=== PATIENT | female | born 1970 | race Caucasian/White ===

== ENCOUNTER 2025-04-09 12:11 | Emergency (ER) | payer OTHER, SELFPAY ==
[2025-04-09 12:17] VITALS: BP 133/62; PULSE 75; RESP 18; TEMP 36.6; O2SAT 100
[2025-04-09 13:12] LABS: EDSTREPNEGPOS1 Negative (Negative)
--- OUTSIDE RECORDS SUMMARY | 2025-04-09 13:35 | XMS_ITS | Encounter Summary ---
Author Organization [facility] Facility Care Team Providers Care Relations Director Name Role Phone Soren Small MD Primary Care Provider [phone] Encounter Details Date Type Department Care Team (Latest Contact Info) Description 08/20/2016 Orders Only [facility] CLINCONV ProviderBilly MD [address] [place] [place] [id number] Social History Tobacco Use Types Packs/Day Years Used Date Smoking Tobacco: Never Assessed Comments Unknown Sex and Gender Information Value Date Recorded Sex Assigned at Not on file Legal Sex Female 6:58 AM DOCKET CLERK Gender Identity Not on file Sexual Orientation Straight 08/09/2022 10 :34 AM DOCKET CLERK documented as of this encounter Plan of Treatment Not on file documented as of this encounter Procedures Procedure Name Priority Date/Time Associated Diagnosis Comments PROCEDURE - RESULT 08/14/2016 12 :00 AM DOCKET CLERK PROCEDURE - RESULT 07/21/2016 12 :00 AM DOCKET CLERK documented in this encounter Results * PROCEDURE - RESULT (08/14/2016 12:00 AM DOCKET CLERK) Narrative 08/14/2016 12:00 AM DOCKET CLERK Ordered by an unspecified provider. Historical Provider Final Res ult * PROCEDURE - RESULT (07/21/2016 12:00 AM DOCKET CLERK) Narrative 07/21/2016 12:00 AM DOCKET CLERK Ordered by an unspecified provider. us Historical Provider Final Res ult documented in this encounter Visit Diagnoses Not on filedocumented in this encounter Additional Health Concerns Infection Onset Date Last Indicated Resolved Time COVID: Suspected 05/22/2021 05/22/2021 05/23/2021 2:41 AM DOCKET CLERK documented as of this encounter Care Teams Relations Director Relationship Specialty Start Date End Date Soren Small MD PCP - General Family Medicine 12/05/18 documented as of this encounter
--- OUTSIDE RECORDS SUMMARY | 2025-04-09 13:35 | XMS_ITS | Clinical Summary ---
Author Organization [facility] Office Center Address [address] [place] [address] Care Team Providers Care Cutch Cleaner Name Role Phone Soren Small MD Primary Care Provider [phone] Allergies Active Allergy Reactions Criticality Noted Date Comments Codeine Sulfate Vomiting Low 10/11/2018 Penicillin G Sodium Rash Medium 10/11/2018 Sulfa (Sulfonamide Antibiotics) Rash Medium 09/14 Medications metroNIDAZOLE (METROGEL) 1 % gel Apply 1 Application topically daily as needed (rosacea) 2 Active pimecrolimus (ELIDEL) 1 % cream Apply 1 Application topically 2 (two) times a day as needed (skin irritation) 2 Active ibuprofen (ADVIL,MOTRIN) 800 mg tabletIndication s:Myalgia Take 1 tablet (800 mg total) by mouth 3 (three) times a day 30 tablet 4 Active methocarbamoL (ROBAXIN) 500 mg tablet Take 1 tablet (500 mg total) by mouth every 12 (twelve) hours as needed for muscle spasms 20 tablet 4 Active mupirocin (BACTROBAN) 2 % ointment Apply to each nostril 2 (two) times a day Apply pea size amount into each nostril twice a day for 5 days prior to surgery. 22 g 4 Active terbinafine (LamiSIL) 250 mg tablet Take 1 tablet (250 mg total) by mouth nightly 4 Active multivitamin tablet Take 1 tablet by mouth nightly Active cholecalciferol (Vitamin D3) 1,000 unit capsule Take 1 capsule (1,000 Units total) by mouth nightly Active citalopram (CeleXA) 10 mg tabletIndication s:Generalized anxiety disorder Take 1 tablet (10 mg total) by mouth daily 90 tablet 5 Active losartan (COZAAR) 50 mg tabletIndication s:Primary hypertension Take 1 tablet (50 mg total) by mouth daily 90 tablet 5 Active Active Problems Problem Noted Date Diagnosed Date Cervical disc disorder with myelopathy of mid-cervical region 05/18/2024 Generalized anxiety disorder 09/09/2021 JESSICA (obstructive sleep apnea) 08/13/2020 Assessment & Plan (02/09/2024 3:27 PM CDT): Due to continued symptoms, the patient will continue with auto titrating CPAP set at 5-15 cm water pressure. Denied need for supplies. DME a [facility] Assessment & Plan (12/14/2022 2:09 PM CDT): Patient continue to wear her CPAP at an auto titrating range of 5-15 cm water pressure while sleeping. Her DME is [facility]. I have sent an order over for new supplies. Assessment & Plan (09/23/2021 11:11 AM CDT): Patient continue to wear her CPAP in auto titrating range of 5-15 cm water pressure while sleeping. Her DME is [facility]. The patient has received her replacement unit from [employer]. Assessment & Plan (08/13/2020 2:01 PM TRACER CLERK): The patient will continue with CPAP therapy at 5 cm water pressure to treat obstructive sleep apnea. The patient did receive an order for new supplies. The DME company is [facility]. The patient is benefitting from CPAP therapy. Vitamin D deficiency 12/05/2018 Overview (12/05/2018): reviewed last labs and asked pt to go up to 2000 units/day Hypertension 02/13/2016 Resolved Problems Problem Noted Date Diagnosed Date Resolved Date Screening for colon cancer 01/12/2023 1 07/31/2023 Morbid obesity with BMI of 45.0-49.9, adult 12/05/2018 05/10/2023 Anxiety 02/13/2016 09/09/2021 Immunizations Immunization Administration Dates Next Due Influenza, Quadrivalent, Spl it, Preservative Free, Intramuscular 04/05/2023,04/22/2022 Influenza, Trivalent, Preser vative Free, Intramuscular 04/11/2024 Influenza, Unspecified 03/14/2024,03/16/2022, Pfizer SARS-CoV-2 Monovalent Vaccination (12+ Yrs) PURPLE 06/24/2020,06/04/2020 Tdap 09/06/2024 ZOSTER Recombinant 05/16/2024,03/01/2024 Surgical History Surgery Date Site/Laterality Comments SECTION FOOT SURGERY Left ENDOMETRIAL ABLATION BREAST BIOPSY Left CARPAL TUNNEL RELEASE Right COLONOSCOPY in her 20's UPPER GASTROINTESTINAL ENDOSCOPY in her 's severe gastritis Medical History Medical History Date Comments Anxiety Hypertension Sleep apnea, obstructive PONV (postoperative nausea and vomiting) Family History Medical History Relation Name Comments Diabetes Father Heart disease Father Breast cancer Mother Delayed emergence from anesthesia Mother Hypertension Mother Ovarian cancer Mother Anesthesia problems Neg Hx Relation Name Status Comments Father Mother Alive Social History Tobacco Use Types Packs/Day Years Used Date Smoking Tobacco: Never Smokeless Tobacco: Never Alcohol Use Standard Drinks/Week Comments Yes 0 (1 standard drink = 0.6 oz pur e alcohol) AUDIT-C Answer Date Recorded Q1: How often do you have a drink containing alc ohol? 2-4 times a month 05/30/2024 Q2: How many drinks containi ng alcohol do you have on a typical day when you are drinking? 1 or 2 05/30/2024 Q3: How often do you have si x or more drinks on one occasion? Never 05/30/2024 PHQ-2 Answer Date Recorded PHQ-2 Total Score (If total score is 3 or more points, staff should administer the PHQ-9) 0 05/30/2024 Personal Safety Answer Date Recorded Have you ever been in or are you currently in a harmful physical or emotional relationship or is someone making you feel afraid or unsafe? Denies 06/23/2024 Comments No Sex and Gender Information Value Date Recorded Sex Assigned at Not on file Legal Sex Female 6:58 AM TRACER CLERK Gender Identity Not on file Sexual Orientation Straight 08/09/2022 10 :34 AM TRACER CLERK Obstetrics History Para Term AB IAB SAB Ectopic Multiple Livin g Live Births 3 3 3 Date Outcome GA Total Labor Labor/2nd/3rd Weight Sex Type Anes PTL Vivienne A1 A5 Name Clin Term Term Term Last Filed Vital Signs Vital Sign Reading Time Taken Comments Blood Pressure 143/89 06/23/2024 12:30 PM TRACER CLERK Pulse 89 06/23/2024 12:30 PM TRACER CLERK Temperature 36 C (96.8 F) 06/23/2024 10:30 AM TRACER CLERK Respiratory Rate 17 06/23/2024 12:30 PM TRACER CLERK Oxygen Saturation 96% 06/23/2024 12:30 PM TRACER CLERK Inhaled Oxygen Concentration - - Weight 116.1 kg (256 lb) 01/05/2025 3:28 PM CDT Height 154.9 cm (5' 1) 05/30/2024 2:58 PM TRACER CLERK Body Mass Index 48.37 05/30/2024 2:58 PM TRACER CLERK Plan of Treatment Health Maintenance Due Date Last Done Comments Cervical Cancer Screening 1970 Regular Well Visit/Exam 18-64 1990 Covid-19 Vaccine ( - season) 2025 06/24/2020, 06/04/2020 Influenza Vaccine (#1) 2025 , 03/14/2024, 04/05/2023, Additional history exists Breast Cancer Screening-Mammogram 05/23/2025 05/23/2024, 05/15/2023, 12/30/2021, Additional history exists Depression Screening 05/30/2025 05/30/2024, 05/10/2023, 05/10/2023, Additional history exists Colon Cancer Screening-Colonoscopy 07/27/2026 07/27/2023 DTaP/Tdap/Td Vaccine (2 - Td or Tdap) 09/06/2034 09/06/2024 Hepatitis B Screening Completed 01/01/2015 Hepatitis C Screening Completed 01/01/2015 Zoster Vaccine Completed 05/16/2024, 03/01/2024 Pneumococcal vaccine <65 Aged Out No longer eligible based on patient's age to complete this topic Medical Devices Implanted Type Area Health Information Clerk Device Identifier Shelf Expiration Date Model / Serial / Lot [employer] Disc Intervertebral Cervical Superior Simplify Size 2 [id number] - [id number] Implanted:Qty: 1 on 06/23/2024 by Henrry Correa MD PhD at [facility] N/A: Spine Cervical [employer] [id number] 09/29/2026 [id number] / / [id number] [employer] Disc Intervertebral Cervical Superior Simplify Size 2 [id number] - [id number] Implanted:Qty: 1 on 06/23/2024 by Henrry Crorea MD PhD at [facility] N/A: Spine Cervical [employer] [id number] 03/01/2028 [id number] / / [id number] Procedures Procedure Name Priority Date/Time Associated Diagnosis Comments SCREENING MAMMOGRAM BILATERAL W DARCIE Schedule Routine, Read Routine (OP Routine) 05/23/2024 8:26 AM TRACER CLERK Encounter for screening mammogram for malignant neoplasm of breast COLONOSCOPY 07/27/2023 11:42 AM TRACER CLERK HEPATITIS PANEL, ACUTE Routine 01/01/2015 10:50 AM CDT from Last 3 Months or Most Recently Relevant to Health Maintenance Results * Screening Mammogram Bilateral W Darcie (05/23/2024 8:26 AM TRACER CLERK) Anatomical Region Laterality Modality Breast Bilateral Mammography Impressions 05/23/2024 10:59 AM TRACER CLERK BI-RADS ATLAS category (overall): 1 - Negative There is no mammographic evidence of malignancy. A 1 year screening mammogram is recommended. The patient has been or will be contacted. We recommend annual screening mammography for women at average risk of breast cancer beginning at age 40, based on guidelines of the [employer] (ACR Practice Parameter for the Performance of Screening and Diagnostic Mammography) and [employer]. For women with and elevated risk of breast cancer, please refer to the ACR Practice Parameter for specific screening recommendations. The patient will be entered into a reminder system with a target due date of 1 year for her next screening exam. Narrative 05/23/2024 10:59 AM TRACER CLERK Screening Mammogram Bilateral W Darcie: 05/23/24 The study was acquired using full field digital technology and interpreted from soft copy. 2D digital mammographic views, as well as 3D digital tomosynthesis were performed in the CC and MLO projections. CLINICAL: Encounter for screening mammogram for malignant neoplasm of breast. No relevant medical history has been documented for this patient. History of breast cancer in Mother. COMPARISONS: 05/15/2023 Screening Mammogram Bilateral W Darcie 12/30/2021 SCREENING MAMMOGRAM BILATERAL W DARCIE 06/15/2019 Screening Mammogram Bilateral W Darcie 05/09/2018 Screening Mammogram Bilateral W Darcie 04/14/2017 Screening Mammogram Bilateral W Darcie BREAST TISSUE: The breasts are heterogeneously dense, which may obscure small masses. FINDINGS: There is no new suspicious finding in either breast on mammogram. us Jennifer Reese MD IMG MAMMO PROCEDURES Final Result * COLONOSCOPY (07/27/2023 11:42 AM TRACER CLERK) Anatomical Region Laterality Modality Other Narrative Procedure Note Marciano Head MD - 07/27/2023 11:42 AM CST [facility] END[facility] Patient Name: Kiki Lawson Procedure Date: 07/27/2023 11:42 AM Date of : 1970 Admit Type: Outpatient Age: 53 Gender: Female Attending MD: Marciano Head M.D. Room: [facility] ROOM 06 Note Status: Finalized Procedure: Colonoscopy Indications: Screening for colorectal malignant neoplasm Referring MD: Sage Dimas M.D. Providers: Marciano Head M.D. Medicines: Monitored Anesthesia Care Complications: No immediate complications. Estimated Blood Loss: Estimated blood loss: none. Procedure: Pre-Anesthesia Assessment: - Prior to the procedure, a History and Physicalwas performed, and patient medications and allergieswere reviewed. The risks and benefits of the procedureand the sedation options and risks were discussed withthe patient. All questions were answered and informed consent was obtained. Patient identification and proposed procedure were verified. After reviewingthe risks and benefits, the patient was deemed in satisfactory condition to undergo the procedure.The anesthesia plan was to use monitored anesthesiacare (MAC). Immediately prior to administration of medications, the patient was re-assessed foradequacy to receive sedatives. The heart rate, respiratory rate, oxygen saturations, blood pressure, adequacyof pulmonary ventilation, and response to care were monitored throughout the procedure. The physical status of the patient was re-assessed after the procedure. The benefits, risks and alternatives of theprocedure and sedation were discussed and informed consentwas obtained. All questions were answered. Please referto the signed informed consent document in the medical record. The scope was passed under direct vision.The [id number]-[id number] colonoscope was introduced through theanus and advanced to the cecum, identified byappendiceal orifice and ileocecal valve. The colonoscopy was performed without difficulty. The patient tolerated the procedure well. The quality of the bowel preparation was adequate. Scope withdrawal time was15 minutes. Prep was administered in a split dose. Findings: The perianal and digital rectal examinations were normal. A 10 mm polyp was found in the ascending colon. The polyp wassessile. The polyp was removed with a hot snare. Resection and retrieval were complete. A diminutive polyp was found in the transverse colon. The polyp was removed with a cold biopsy forceps. Resection and retrieval were complete. A diminutive polyp was found in the splenic flexure. The polyp was removed with a cold biopsy forceps. Resection and retrieval were complete. Non-bleeding internal hemorrhoids were found during retroflexion. The hemorrhoids were small. The exam was otherwise without abnormality. Impression: - One 10 mm polyp in the ascending colon, removedwith a hot snare. Resected and retrieved. - One diminutive polyp in the transverse colon, removed with a cold biopsy forceps. Resected and retrieved. - One diminutive polyp at the splenic flexure,removed with a cold biopsy forceps. Resected andretrieved. - Non-bleeding internal hemorrhoids. - The examination was otherwise normal. Recommendation: - Patient has a contact number available for emergencies. The signs and symptoms of potential delayed complications were discussed with thepatient. Return to normal activities tomorrow. Written discharge instructions were provided to thepatient. - High fiber diet. - Continue present medications. - Await pathology results. - Repeat colonoscopy in 3 years for surveillance. Marciano Head M.D. Marciano Head M.D. 07/27/2023 12:28:32 PM . Number of Addenda: 0 Note Initiated On: 07/27/2023 11:42 AM Recognized by the [place] [employer] for promoting quality in endoscopy Marciano Head MD ENDOSCOPY PROCEDURES Final Resul t * (ABNORMAL) Hepatitis panel, acute (01/01/2015 10:50 AM CDT) HepBsAg NONREACT NONREACTIVE Comment: Siemens CentaurXP using FAREED (chemiluminescent immunoassay) technology. NONREACTIVE: IgM antibodies to Hepatitis B Surface antigen not detected. REACTIVE: IgM antibodies to Hepatitis B Surface antigen detected. Reactive results will be confirmed by neutralization testing. HBsAb (immune status) REACTIVE(H) NONREACTIVE Comment: Siemens CentaurXP using FAREED (chemiluminescent immunoassay) technology. NONREACTIVE: IgM antibodies to Hepatitis B Surface antibody not detected. REACTIVE: IgM antibodies to Hepatitis B Surface antibody detected. Hep B core IgM NONREACT NONREACTIVE 5 12:22 PM [facility] HISTORICAL RESULTS Comment: Siemens CentaurXP using FAREED (chemiluminescent immunoassay) technology. NONREACTIVE: IgM antibodies to Hepatitis B Core antigen not detected. EQUIVOCAL: IgM antibodies to Hepatitis B Core antigen may or may not be present. Obtain a new specimen and retest. REACTIVE: IgM antibodies to Hepatitis B Core antigen detected. Hep A IgM NONREACT NONREACTIVE Comment: Siemens CentaurXP using FAREED (chemiluminescent immunoassay) technology. NONREACTIVE: IgM antibodies to Hepatitis A not detected. This does not exclude possibility of exposure to Hepatitis A or early acute infection. EQUIVOCAL:IgM antibodies to Hepatitis A may or may not be present. Suggest recollection and retest. REACTIVE: Antibodies to Hepatitis A detected. Hep C Ab NONREACT NONREACTIVE Comment: Siemens CentaurXP using FAREED (chemiluminescent immunoassay) technology. NONREACTIVE: Antibodies to Hepatitis C not detected. This does not exclude early acute Hepatitis C infection, possibility of exposure to Hepatitis C, antibodies below detection limit, or to lack of antibody reactivity to the antigen used in this assay. EQUIVOCAL: Antibodies to Hepatitis C may or may not be present. Sample to be confirmed by real-time PCR method. REACTIVE: Antibodies to Hepatitis C detected. 01/01/2015 10:5 0 AM CDT 01/01/2015 11:01 AM CDT X[facility] Chairez LAB MICROBIOLOGY - GENER AL ORDERABLES Final Result Performing Organization Address City/State/[facility] Co de Phone Number [facility] HISTORICAL RESULTS from Last 3 Months or Most Recently Relevant to Health Maintenance Insurance [facility] [employer] Address: [address] [place] [address] [employer] [facility] [employer] Address[address] [place] [address] [employer] [facility] [employer] Address: [address] [place] [address] Care Teams Cutch Cleaner Relationship Specialty Start Date End Date Soren Small MD PCP - General Family Medicine 12/05/18
--- OUTSIDE RECORDS SUMMARY | 2025-04-09 13:35 | XMS_ITS | Encounter Summary ---
Author Organization [facility] Facility Care Team Providers Care Oyster Sorter Name Role Phone Soren Small MD Primary Care Provider [phone] Encounter Details Date Type Department Care Team (Latest Contact Info) Description 10/22/2016 Orders Only [facility]G CLINCONV ProviderBilly MD [address] [place] [address] Social History Tobacco Use Types Packs/Day Years Used Date Smoking Tobacco: Never Assessed Comments Unknown Sex and Gender Information Value Date Recorded Sex Assigned at Not on file Legal Sex Female 6:58 AM PIT AND AUXILIARIES SUPERVISOR Gender Identity Not on file Sexual Orientation Straight 08/09/2022 10 :34 AM PIT AND AUXILIARIES SUPERVISOR documented as of this encounter Plan of Treatment Not on file documented as of this encounter Procedures Procedure Name Priority Date/Time Associated Diagnosis Comments PROCEDURE - RESULT 08/14/2016 12 :00 AM PIT AND AUXILIARIES SUPERVISOR documented in this encounter Results * PROCEDURE - RESULT (08/14/2016 12:00 AM PIT AND AUXILIARIES SUPERVISOR) Narrative 08/14/2016 12:00 AM PIT AND AUXILIARIES SUPERVISOR Ordered by an unspecified provider. Historical Provider Final Res ult documented in this encounter Visit Diagnoses Not on filedocumented in this encounter Additional Health Concerns Infection Onset Date Last Indicated Resolved Time COVID: Suspected 05/22/2021 05/22/2021 05/23/2021 2:41 AM PIT AND AUXILIARIES SUPERVISOR documented as of this encounter Care Teams Oyster Sorter Relationship Specialty Start Date End Date Soren Small MD PCP - General Family Medicine 12/05/18 documented as of this encounter
--- NOTE | 2025-04-09 13:55 | ED_ITS ---
HPI - General Adult General Chief complaint: Upper Respiratory Infection Stated complaint: Cough / Congestion Source: patient Mode of arrival: ambulatory Limitations: no limitations History of Present Illness HPI narrative: Patient presents for evaluation of sick symptoms since 03/31/2025. She reports headache, sinus congestion, thick yellow/green drainage from the nares, sore throat and occasional cough. No nausea, vomiting, diarrhea or SOB. No recent sick contacts to her knowledge. She has tried several over the counter medications without much improvement. Related Data Home Medications ?Medication ?Instructions ?Recorded ?Confirmed ?Last Taken ?Type citalopram 10 mg tablet mg 04/09/25 Unknown History losartan 50 mg tablet mg 04/09/25 Unknown History Allergies Allergy/AdvReac Type Severity Reaction Status Date / Time codeine Allergy Mild Rash Verified 04/09/25 12:49 Penicillins Allergy Mild Rash Verified 04/09/25 12:49 Review of Systems Review of Systems: CONSTITUTIONAL: Denies fever, chills, or sweats. EYES: Denies visual changes, redness, or discharge. ENT: Reports sinus congestion, thick yellow/green drainage from the nares and sore throat CARDIOVASCULAR: Denies chest pain, palpitations, or edema. RESPIRATORY: Denies cough or dyspnea. GASTROINTESTINAL: Denies abdominal pain, nausea, vomiting, or diarrhea. GENITOURINARY: Denies dysuria or hematuria. SKIN: Denies rash or itching. MUSCULOSKELETAL: Denies back pain, joint pain, or myalgia. NEUROLOGIC: Reports headache. Denies numbness, dizziness, or weakness. PSYCHIATRIC: Denies anxiety or depression. [facility] Past Medical History Medical History Hypertension Surgical History Surgical History No pertinent past surgical history Family History Family History Mother Family history non-contributory Social History Social History Living arrangements: with family Additional occupation/education comments: RN director Gender identity (if verbalized by the patient): Female Spiritual care concerns: No Exam Narrative: GENERAL: Well-appearing, well-nourished, and in no acute distress. HEAD: Normocephalic, atraumatic. EYES: PERRLA and EOMI. ENT: Nares clear, no rhinorrhea or epistaxis. Mucous membranes moist. Oropharynx without tonsillar hypertrophy exudate or other lesions. Bilateral TMs pearly rivero nonbulging NECK: Supple. No adenopathy or masses. No carotid bruits or JVD CHEST: Clear to auscultation. No respiratory distress. No wheezes rales or rhonchi HEART: Regular rate and rhythm. No murmur heard. Normal peripheral pulses. ABDOMEN: Soft, nontender, nondistended, normal active bowel sounds. EXTREMITIES: Normal range of motion. No edema. SKIN: Warm, dry, no rash. NEURO: No focal deficits. Alert and oriented x3. PSYCH: Normal mood and affect. Course Course Emergency Course: this is a 54-year-old female who presented for evaluation of sick symptoms. She meets criteria for bacterial sinusitis based upon duration of time in which she has been symptomatic and mucopurulent nature for discharge. She has an allergy to penicillins will discharge with doxycycline. Increase hydration. [id number] agents for symptom management. Follow up with primary provider. Go to the ER for worsening symptoms. Patient in agreement with plan of care. Level of Care: Express Care Visit Vital Signs Vital signs: Vital Signs Temperature 36.6 C 04/09/25 12:17 Pulse Rate 75 04/09/25 12:17 Respiratory Rate 18 04/09/25 12:17 Blood Pressure 133/62 04/09/25 12:17 Pulse Oximetry 100 04/09/25 12:17 Oxygen Delivery Room Air 04/09/25 12:17 Temperature 36.6 C 04/09/25 12:17 Pulse Rate 75 04/09/25 12:17 Respiratory Rate 18 04/09/25 12:17 Blood Pressure 133/62 04/09/25 12:17 Pulse Oximetry 100 04/09/25 12:17 Oxygen Delivery Room Air 04/09/25 12:17 Medical Decision Making Vital Signs Vital Signs: Vital Signs Temperature 36.6 C 04/09/25 12:17 Pulse Rate 75 04/09/25 12:17 Respiratory Rate 18 04/09/25 12:17 Blood Pressure 133/62 04/09/25 12:17 Pulse Oximetry 100 04/09/25 12:17 Oxygen Delivery Room Air 04/09/25 12:17 Temperature 36.6 C 04/09/25 12:17 Pulse Rate 75 04/09/25 12:17 Respiratory Rate 18 04/09/25 12:17 Blood Pressure 133/62 04/09/25 12:17 Pulse Oximetry 100 04/09/25 12:17 Oxygen Delivery Room Air 04/09/25 12:17 Lab Data Labs: Lab Results 04/09/25 Range/Units 12:48 POC Grp A Strep Screen Negative (Negative) Discharge Plan Discharge Clinical Impression: Sinusitis Patient Disposition: Home Condition: Stable Instructions: Antibiotic Form, Sinusitis (ED) Patient Language: Serbian Prescriptions: New doxycycline hyclate 100 mg capsule 100 mg PO BID Qty: 20 0RF No Action losartan 50 mg tablet citalopram 10 mg tablet Follow-up/Referrals: Staci,Soren Mcclendon MD [Primary Care Provider, Unknown] Time of Disposition: 13:19
== END 2025-04-09 13:20 | disposition home or self-care (01) ==
PROVIDERS: Emergency Provider Nurse Practitioner; PCP Family Medicine
DX: J32.9 Chronic sinusitis, unspecified (principal); I10 Essential (primary) hypertension
CPT/HCPCS: 87081; 87880; 99213; G0463

== ENCOUNTER 2025-04-10 08:02 | Emergency (ER) | payer OTHER, SELFPAY ==
--- NOTE | 2025-04-10 08:04 | ED.EYEPROB ---
HPI - Eye Problem General Chief complaint: Eye Problems Stated complaint: RT Eye Problem Time Seen by Provider: 04/10/25 08:04 Source: patient Mode of arrival: ambulatory Limitations: no limitations History of Present Illness HPI Narrative: Patient is a 54-year-old female who presents with right eye redness, drainage, and being matted shut since this morning. Patient seen here yesterday and given doxycycline for sinus infection. Denies any blurred vision or pain. Related Data Home Medications ?Medication ?Instructions ?Recorded ?Confirmed ?Last Taken ?Type citalopram 10 mg tablet mg 04/09/25 Unknown History losartan 50 mg tablet mg 04/09/25 Unknown History Allergies Allergy/AdvReac Type Severity Reaction Status Date / Time codeine Allergy Mild Rash Verified 04/10/25 08:13 Penicillins Allergy Mild Rash Verified 04/10/25 08:13 Review of Systems Review of Systems: All systems reviewed & are unremarkable except as noted in HPI and below Constitutional: Constitutional: Denies body ache(s), Denies fever(s), Denies headache(s), Denies malaise and Denies weakness Eyes: Eyes: Denies blurry vision, Reports eye discharge, Reports irritation, Denies itchy eyes, Denies loss of vision and Denies eye pain ENT: Denies otalgia, Denies headache(s), Denies nasal discharge, Denies sinus pain and Denies sore throat Cardiovascular: Cardiovascular: Denies chest pain, Denies irregular heart rhythm and Denies dyspnea Respiratory: Respiratory: Denies dyspnea Gastrointestinal: Gastrointestinal: Denies abdominal pain, Denies diarrhea, Denies nausea and Denies vomiting Musculoskeletal: Musculoskeletal: Denies back pain, Denies myalgias and Denies arthralgias Integumentary/Breasts: Skin/Breast: Denies pruritus and Denies rash Neurologic: Denies headache(s), Denies loss of vision and Denies weakness Psychiatric: Psychiatric: Reports no additional psychiatric complaints Allergic/Immunologic: Allergic/Immunologic: Reports itchy eyes PMFSH Past Medical History Medical History Hypertension Surgical History Surgical History No pertinent past surgical history Family History Family History Mother Family history non-contributory Social History Social History Living arrangements: with family Additional occupation/education comments: RN director Gender identity (if verbalized by the patient): Female Spiritual care concerns: No Comments At time of signature, agree with nursing past medical, surgical, social and family history. There is no relevant family history pertinent to the presenting complaint. Exam Const: General: cooperative, healthy appearing, comfortable, no acute distress and well nourished Nutritional Appearance: well nourished Orientation/consciousness: patient oriented x3 Limitations: no limitations HENMT: Head: normal to inspection, normocephalic and atraumatic Ears: external ears normal Face/Nose/Sinus: Normal external nose present, normal facial exam and face symmetric Face and sinus: normal facial exam and face symmetric Mouth: Yes lip normal Eyes: General: appearance normal, both eyes and all related structures Visual Delgadillo: normal visual delgadillo by confrontation Alignment and Position: alignment normal and position normal Periorbital: periorbital findings normal Eyelids: eyelids normal Conjunctivae: conjunctival abnormality right conjunctival injection diffuse and discharge mucoid Sclera: scleral abnormality right scleral injection diffuse Pupils: Equal, round and reactive pupils present EOM: EOMs intact bilaterally Direct Ophthalmoscopy: no photophobia Other: No hyphema, no foreign body under the lids. Neck: Neck: normal visual inspection, full ROM, no lymphadenopathy and no meningeal signs Chest: Chest palpation & inspection: normal inspection of the chest Resp: Effort & Inspection: normal respiratory effort and able to speak in complete sentences Auscultation: clear to auscultation bilaterally Cardio: Rate: regular rate Rhythm: regular rhythm Heart sounds: S1 normal heart sound present and S2 normal heart sound present GI: Inspection: normal to inspection Skin: General skin exam: normal color and no rashes or lesions noted Neuro: General: patient oriented x3, moves all extremities and no meningeal signs Cranial nerves: Yes Equal, round and reactive pupils present Speech: normal speech Gait exam (Neuro): Normal gait present Extrem: General: normal to inspection, full ROM and no edema Psych: Appearance: grossly normal and well kempt Mental Status: mental status grossly normal Speech and movement: Normal speech and movement present Affect: normal affect Attitude: cooperative Thought process: Normal thought process present Course Course Emergency Course: Patient is aware of diagnosis, understands and agrees to treatment plan. Anticipatory guidance given. Patient agrees to follow-up as directed and is aware of reasons to seek care at the emergency department. Portions of this record may have been created with voice recognition software Level of Care: Express Care Visit Vital Signs Vital signs: Reviewed MDM - Eye Problem MDM Narrative Medical decision making narrative: Symptoms consistent with conjunctivae this. Will treat with antibiotic drops. Patient to continue with oral antibiotics for sinus infection Pt well hydrated appearing, in no respiratory distress, hemodynamically stable. Recommend supportive care. The patient is stable at time of discharge the clinical impression was discussed and the patient was given the opportunity to ask questions, which were addressed as completely as possible given the information available at present. Anticipatory guidance and return to care precautions were discussed and the importance of primary care follow-up was stressed and encouraged. The patient voiced understanding of the plan, indications to return, and the need for follow-up. Exam findings show no acute concerns or changes Patient is appropriate for outpatient treatment and follow-up. Differential Diagnosis Differential diagnosis: Likely corneal abrasion, conjunctivitis and corneal ulcer Medical Records Attestation: I reviewed the patient's medical records. Discharge Plan Discharge Clinical Impression: Conjunctivitis Qualifiers: Conjunctivitis type: acute Acute conjunctivitis type: bacterial Laterality: right Qualified Code(s): H10.31 - Unspecified acute conjunctivitis, right eye Patient Disposition: Home Condition: Stable Instructions: Conjunctivitis (ED) Additional Instructions: Eye drops as prescribed. -Do this for 3 to 4 days until all redness and discharge has disappeared. -Cold compresses to the affected eye for comfort -May need warm compresses to remove debris in the morning -When cleaning the eyes used a washcloth/cotton ball in one direction then change washcloths/cotton ball before using it on another eye. -Do not share medicine--do not touch the eye with the medicine -Alternate or take Tylenol or ibuprofen as directed in the bottle for pain -Avoid screen time--television, computer, tablet or phone. -Practice good handwashing and hygiene to prevent spread of infection Follow-up with PCP or learning and development coordinator if condition is not improving in 2-3days. Go to the emergency room if you have pain behind your eye, pressure behind her eye, difficulty seeing, or other severe symptoms Patient Language: Lao Prescriptions: New ofloxacin 0.3 % drops See Rx Instructions .ROUTE .COMPLEX Qty: 10 0RF Rx Instructions: put 1-2 drps into right eye every 2-4 h x 2 days, then 1-2 drps 4 times/day days 3-7 No Action losartan 50 mg tablet citalopram 10 mg tablet doxycycline hyclate 100 mg capsule 100 mg PO BID Qty: 20 0RF Follow-up/Referrals: Staci,Soren Mcclendon MD [Primary Care Provider, Unknown] - 3 Days Time of Disposition: 08:15
[2025-04-10 08:14] VITALS: BP 154/96; PULSE 78; RESP 18; TEMP 36.2; O2SAT 100
--- OUTSIDE RECORDS SUMMARY | 2025-04-10 08:14 | XMS_ITS | Encounter Summary ---
Author Organization [facility] Facility Care Team Providers Care Television Repairer Name Role Phone Soren Small MD Primary Care Provider [phone] Encounter Details Date Type Department Care Team (Latest Contact Info) Description 08/20/2016 Orders Only [facility]IN[facility] ProviderBilly MD [address] [place] [id number] Social History Tobacco Use Types Packs/Day Years Used Date Smoking Tobacco: Never Assessed Comments Unknown Sex and Gender Information Value Date Recorded Sex Assigned at Not on file Legal Sex Female 6:58 AM MATTRESS FINISHER Gender Identity Not on file Sexual Orientation Straight 08/09/2022 10 :34 AM MATTRESS FINISHER documented as of this encounter Plan of Treatment Not on file documented as of this encounter Procedures Procedure Name Priority Date/Time Associated Diagnosis Comments PROCEDURE - RESULT 08/14/2016 12 :00 AM MATTRESS FINISHER PROCEDURE - RESULT 07/21/2016 12 :00 AM MATTRESS FINISHER documented in this encounter Results * PROCEDURE - RESULT (08/14/2016 12:00 AM MATTRESS FINISHER) Narrative 08/14/2016 12:00 AM MATTRESS FINISHER Ordered by an unspecified provider. Historical Provider Final Res ult * PROCEDURE - RESULT (07/21/2016 12:00 AM MATTRESS FINISHER) Narrative 07/21/2016 12:00 AM MATTRESS FINISHER Ordered by an unspecified provider. us Historical Provider Final Res ult documented in this encounter Visit Diagnoses Not on filedocumented in this encounter Additional Health Concerns Infection Onset Date Last Indicated Resolved Time COVID: Suspected 05/22/2021 05/22/2021 05/23/2021 2:41 AM MATTRESS FINISHER documented as of this encounter Care Teams Television Repairer Relationship Specialty Start Date End Date Soren Small MD PCP - General Family Medicine 12/05/18 documented as of this encounter
--- OUTSIDE RECORDS SUMMARY | 2025-04-10 08:14 | XMS_ITS | Clinical Summary ---
Author Organization [facility] at [facility] Office Center Address [address] [place] [address] Care Team Providers Care Division Roadmaster Name Role Phone Soren Small MD Primary Care Provider [phone] Allergies Active Allergy Reactions Criticality Noted Date [...] pressure. Denied need for supplies. DME a [facility] Assessment & Plan (12/14/2022 2:09 PM CDT): Patient continue to wear her CPAP at an auto titrating range of 5-15 cm water pressure while sleeping. Her DME is [facility]. I have sent an order over for new supplies. Assessment & Plan (09/23/2021 11:11 AM CDT): Patient continue to wear her CPAP in auto titrating range of 5-15 cm water pressure while sleeping. Her DME is [facility]. The patient has received her replacement unit from [employer]. Assessment & Plan (08/13/2020 2:01 PM MIRROR DEPARTMENT SUPERVISOR): The patient will continue with CPAP therapy at 5 cm water pressure to treat obstructive sleep apnea. The patient did receive an order for new supplies. The DME company is [facility]. The patient is benefitting from CPAP therapy. Vitamin D deficiency 12/05/2018 Overview (12/05/2018): reviewed last labs and asked pt to go up to 2000 units/day Hypertension 02/13/2016 Resolved Problems Problem Noted Date Diagnosed Date Resolved Date Screening for colon cancer 01/12/2023 1 07/31/2023 Morbid obesity with BMI of 45.0-49.9, adult 12/05/2018 05/10/2023 Anxiety 02/13/2016 09/09/2021 Encounters Date Type Department Care Team Description 04/09/2025 Nurse Triage [facility] Family Medicine at [address] [place] [address] Tish Boss RN from Last 3 Months Immunizations Immunization Administration Dates Next Due Influenza, [...] her 20's UPPER GASTROINTESTINAL ENDOSCOPY in her 20's severe gastritis Medical History Medical History Date [...] on file Legal Sex Female 6:58 AM MIRROR DEPARTMENT SUPERVISOR Gender Identity Not on file Sexual Orientation Straight 08/09/2022 10 :34 AM MIRROR DEPARTMENT SUPERVISOR Obstetrics History Para Term AB IAB SAB Ectopic Multiple Livin g Live Births 3 3 3 Date Outcome GA Total Labor Labor/2nd/3rd Weight Sex Type Anes PTL Vivienne A1 A5 Name Clin Term Term Term Last Filed Vital Signs Vital Sign Reading Time Taken Comments Blood Pressure 143/89 06/23/2024 12:30 PM MIRROR DEPARTMENT SUPERVISOR Pulse 89 06/23/2024 12:30 PM MIRROR DEPARTMENT SUPERVISOR Temperature 36 C (96.8 F) 06/23/2024 10:30 AM MIRROR DEPARTMENT SUPERVISOR Respiratory Rate 17 06/23/2024 12:30 PM MIRROR DEPARTMENT SUPERVISOR Oxygen Saturation 96% 06/23/2024 12:30 PM MIRROR DEPARTMENT SUPERVISOR Inhaled Oxygen Concentration - - Weight 116.1 kg (256 lb) 01/05/2025 3:28 PM CDT Height 154.9 cm (5' 1) 05/30/2024 2:58 PM MIRROR DEPARTMENT SUPERVISOR Body Mass Index 48.37 05/30/2024 2:58 PM MIRROR DEPARTMENT SUPERVISOR Plan of Treatment Health Maintenance Due Date Last Done Comments Cervical Cancer Screening 1970 Regular Well Visit/Exam 18-64 1990 Covid-19 Vaccine ( season) 2025 06/24/2020, 06/04/2020 Influenza Vaccine (#1) [...] this topic Medical Devices Implanted Type Area Liner Worker Device Identifier Shelf Expiration Date Model / Serial / Lot [employer] Disc Intervertebral Cervical Superior Simplify Size 2 [id number] - [id number] Implanted:Qty: 1 on 06/23/2024 by Henrry Correa MD PhD at [facility] N/A: Spine Cervical [employer] [id number] 09/29/2026 [id number] / / [id number] [employer] Disc Intervertebral Cervical Superior Simplify Size 2 [id number] - [id number] Implanted:Qty: 1 on 06/23/2024 by Henrry Correa MD PhD at [facility] N/A: Spine Cervical [employer] [id number] 03/01/2028 [id number] / / [id number] Procedures Procedure Name Priority Date/Time Associated Diagnosis Comments SCREENING MAMMOGRAM BILATERAL W DARCIE Schedule Routine, Read Routine (OP Routine) 05/23/2024 8:26 AM MIRROR DEPARTMENT SUPERVISOR Encounter for screening mammogram for malignant neoplasm of breast COLONOSCOPY 07/27/2023 11:42 AM MIRROR DEPARTMENT SUPERVISOR HEPATITIS PANEL, ACUTE Routine 01/01/2015 10:50 AM CDT from Last 3 Months or Most Recently Relevant to Health Maintenance Results * Screening Mammogram Bilateral W Darcie (05/23/2024 8:26 AM MIRROR DEPARTMENT SUPERVISOR) Anatomical Region Laterality Modality Breast Bilateral Mammography Impressions 05/23/2024 10:59 AM MIRROR DEPARTMENT SUPERVISOR BI-RADS ATLAS category (overall): 1 - Negative There is no mammographic evidence of malignancy. A 1 year screening mammogram is recommended. The patient has been or will be contacted. We recommend annual screening mammography for women at average risk of breast cancer beginning at age 40, based on guidelines of the [employer] (ACR Practice Parameter for the Performance of Screening and Diagnostic Mammography) and [place]. For women with and elevated risk of breast cancer, please refer to the ACR Practice Parameter for specific screening recommendations. The patient will be entered into a reminder system with a target due date of 1 year for her next screening exam. Narrative 05/23/2024 10:59 AM MIRROR DEPARTMENT SUPERVISOR Screening Mammogram Bilateral W Darcie: 05/23/24 The [...] Final Result * COLONOSCOPY (07/27/2023 11:42 AM MIRROR DEPARTMENT SUPERVISOR) Anatomical Region Laterality Modality Other Narrative Procedure Note Marciano Head MD - 07/27/2023 11:42 AM CST [facility] GI ENDOSCOPY Patient Name: Kiki Lawson Procedure Date: 07/27/2023 11:42 AM Date of : 1970 Admit Type: Outpatient Age: 53 Gender: Female Attending MD: Marciano Head M.D. Room: [facility] ENDOSCOPY ROOM 06 Note Status: Finalized Procedure: Colonoscopy [...] The scope was passed under direct vision.The [id number]-[id number] colonoscope was introduced through theanus and advanced [...] On: 07/27/2023 11:42 AM Recognized by the [employer] for promoting quality in endoscopy Marciano Head MD ENDOSCOPY PROCEDURES Final Resul t * (ABNORMAL) Hepatitis panel, acute (01/01/2015 10:50 AM CDT) HepBsAg NONREACT NONREACTIVE 01/01/2015 11:54 AM [facility] HISTORICAL RESULTS Comment: [employer] using FAREED (chemiluminescent immunoassay) technology. NONREACTIVE: IgM antibodies to Hepatitis B Surface antigen not detected. REACTIVE: IgM antibodies to Hepatitis B Surface antigen detected. Reactive results will be confirmed by neutralization testing. HBsAb (immune status) REACTIVE(H) NONREACTIVE 01/01/2015 11:45 AM [facility] HISTORICAL RESULTS Comment: Siemens CentaurXP using FAREED (chemiluminescent immunoassay) technology. NONREACTIVE: IgM antibodies to Hepatitis B Surface antibody not detected. REACTIVE: IgM antibodies to Hepatitis B Surface antibody detected. Hep B core IgM NONREACT NONREACTIVE 5 12:22 PM T [facility] HISTORICAL RESULTS Comment: Siemens CentaurXP using FAREED [...] 0 AM CDT 01/01/2015 11:01 AM CDT us Xenia Chairez LAB MICROBIOLOGY - GENER AL ORDERABLES Final Result [facility] HISTORICAL RESULTS from Last 3 Months or Most Recently Relevant to Health Maintenance Insurance CIG[employer] CIGNA CIGNA Care Teams Division Roadmaster Relationship Specialty Start Date End Date Soren Small MD PCP - General Family Medicine 12/05/18
--- OUTSIDE RECORDS SUMMARY | 2025-04-10 08:14 | XMS_ITS | Encounter Summary ---
Author Organization [facility] Healthcare Address [address] [place] [address] Care Team Providers Care Polyethylene Combiner Name Role Phone Soren Small MD Primary Care Provider [phone] Reason for Visit * Reason Onset Date Comments Duplicate Call 04/09/2025 Encounter Details Date Type Department Care Team (Late st Contact Info) Description 04/09/2025 Nurse Triage [facility] Family Medicine at [address] [place] [address] Tish Boss, NHUNG Social History Tobacco Use Types Packs/Day Years [...] on file Legal Sex Female 6:58 AM GUEST SERVICES Gender Identity Not on file Sexual Orientation Straight 08/09/2022 10 :34 AM GUEST SERVICES documented as of this encounter Miscellaneous Notes * Telephone Encounter - Tish Boss RN - 04/09/2025 2:42 PM CDT Spoke with patient who has already been seen in . Denies further needs at this time. * Telephone Encounter - Kesha Childs RN - 04/09/2025 1:51 PM CDT Regarding: Headache, yellow nasal discharge and cough. ----- Message from Francis Magdaleno sent at 04/09/2025 10:13 AM CDT ----- Symptom Based Call Chief Complaint(s): Headache, yellow nasal discharge and cough. Duration: Started on 03/31/25 and worsening What type of symptom(s) is the patient experiencing? Non-Emergent. Is this a new or reoccurring symptom(s)? New What have you tried to help your symptom(s)? DayQuil, NyQuil, Ibuprofen, Excedrin Migraine and cough syrup with additional rest Why was appointment not scheduled? Appointment availability did not meet the patient's need. Additional Comments: None Does message need to be routed? Yes-Action Needed documented in this encounter Plan of Treatment Not on file documented as of this encounter Visit Diagnoses Not on filedocumented in this encounter Care Teams Polyethylene Combiner Relationship Specialty Start Date End Date Soren Small MD PCP - General Family Medicine 12/05/18 documented as of this encounter
--- OUTSIDE RECORDS SUMMARY | 2025-04-10 08:14 | XMS_ITS | Encounter Summary ---
Author Organization [facility] Facility Care Team Providers Care Torch Burner Name Role Phone Soren Small MD Primary Care Provider [phone] Encounter Details Date Type Department Care Team (Latest Contact Info) Description 10/22/2016 Orders Only [facility] CLINCONV ProviderBilly MD [address] [place] [address] Social History Tobacco Use Types Packs/Day Years Used Date Smoking Tobacco: Never Assessed Comments Unknown Sex and Gender Information Value Date Recorded Sex Assigned at Not on file Legal Sex Female 6:58 AM OPERATOR RECEPTIONIST Gender Identity Not on file Sexual Orientation Straight 08/09/2022 10 :34 AM OPERATOR RECEPTIONIST documented as of this encounter Plan of Treatment Not on file documented as of this encounter Procedures Procedure Name Priority Date/Time Associated Diagnosis Comments PROCEDURE - RESULT 08/14/2016 12 :00 AM OPERATOR RECEPTIONIST documented in this encounter Results * PROCEDURE - RESULT (08/14/2016 12:00 AM OPERATOR RECEPTIONIST) Narrative 08/14/2016 12:00 AM OPERATOR RECEPTIONIST Ordered by an unspecified provider. Historical Provider Final Res ult documented in this encounter Visit Diagnoses Not on filedocumented in this encounter Additional Health Concerns Infection Onset Date Last Indicated Resolved Time COVID: Suspected 05/22/2021 05/22/2021 05/23/2021 2:41 AM OPERATOR RECEPTIONIST documented as of this encounter Care Teams Torch Burner Relationship Specialty Start Date End Date Soren Small MD PCP - General Family Medicine 12/05/18 documented as of this encounter
== END 2025-04-10 08:20 | disposition home or self-care (01) ==
PROVIDERS: Emergency Provider Nurse Practitioner Family; PCP Family Medicine
DX: H10.31 Unspecified acute conjunctivitis, right eye (principal); I10 Essential (primary) hypertension
CPT/HCPCS: 99213; G0463

== ENCOUNTER 2025-04-13 10:40 | Outpatient (CLI) | payer OTHER, SELFPAY ==
--- NOTE | ~2025-04-13 | XR_ITS ---
EXAMINATION: XR chest 2V, 04/13/2025 10:50 CDT HISTORY: acute cough COMPARISON: No comparisons available. Technique: 2 views obtained. Findings: The lungs are clear, no effusion. No pneumothorax. Heart is normal size. Mediastinal and hilar contours are within normal limits. Bony thorax no acute abnormality. Impression: No acute cardiopulmonary abnormality. Reviewed, dictated and finalized at location P. Impression: No acute cardiopulmonary abnormality.
--- OUTSIDE RECORDS SUMMARY | 2025-04-13 09:45 | XMS_ITS | Encounter Summary ---
Author Organization [facility] Healthcare Address [address] [place] [address] Care Team Providers Care Fax Machine Operator Name Role Phone Soren Small MD Primary Care Provider [phone] Reason for Visit * Reason Comments Follow-up Encounter Details Date Type Department Care Team ([facility] Contact Info) Description 04/13/2025 9:45 AM CDT Office Visit [facility] Pulmonary [address] [place] [address] Pascale Rose, ADULT PAROLE OFFICER [address] [facility] [address] [address] JESSICA (obstructive sleep apnea) (Primary Dx); Acute cough Social History Tobacco Use Types Packs/Day Years [...] on file Legal Sex Female 6:58 AM TICKET SCHEDULER Gender Identity Not on file Sexual Orientation Straight 08/09/2022 10 :34 AM TICKET SCHEDULER documented as of this encounter Last Filed Vital Signs Vital Sign Reading Time Taken Comments Blood Pressure 118/74 04/13/2025 9:45 AM CDT Pulse 80 04/13/2025 9:45 AM CDT Temperature 36.4 C (97.6 F) 04/13/2025 9:45 AM CDT Respiratory Rate 18 04/13/2025 9:45 AM CDT Oxygen Saturation 96% 04/13/2025 9:45 AM CDT Inhaled Oxygen Concentration - - Weight 117.3 kg (258 lb 11.2 oz) 04/13/2025 9:45 AM CDT Height 154.9 cm (5' 1) 04/13/2025 9:45 AM CDT Body Mass Index 48.88 04/13/2025 9:45 AM CDT documented in this encounter Ordered Prescriptions Prescription Sig Dispense Quantity Refills Last Filled Start Date End Date methylPREDNISolone (Medrol, Tunde,) 4 mg DosepackIndication s:Acute cough follow package directions 1 packet 04/13/2025 documented in this encounter Miscellaneous Notes * Assessment & Plan Note - Pascale Rose NP - 04/13/2025 10:07 AM CDT Associated Problem(s): Acute cough Due to the acute cough I have ordered a chest x-ray and provide the patient with a Medrol Dosepak. The patient states that typically a Z-Tunde helps her the best. I did ask the patient to call back in if she does not feel better after completing the doxycycline. She did verbalize understanding. * Assessment & Plan Note - Pascale Rose NP - 04/13/2025 10:06 AM CDT Associated Problem(s): JESSICA (obstructive sleep apnea) Patient continue to wear her CPAP at auto titrating range of 5-15 cm water pressure while sleeping.Her DME is [facility] home care. documented in this encounter Plan of Treatment Scheduled Orders Name Type Priority Associated Diagnoses Orde r Schedule XR Chest Pa Lateral 2 Views Imaging Schedule Routine, Read Routine (OP Routine) Acute cough Expected: 04/13/2025, Expires: 04/13/2026 documented as of this encounter Visit Diagnoses Diagnosis JESSICA (obstructive sleep apnea)- Primary Obstructive sleep apnea (adult) (pediatric) Acute cough documented in this encounter Historical Medications * This list may reflect changes made after this encounter. doxycycline hyclate 100 mg capsule Take 1 tablet/capsu le (100 mg total) by mouth 2 (two) times a day 04/09/2025 added in this encounter Care Teams Fax Machine Operator Relationship Specialty Start Date End Date Soren Small MD PCP - General Family Medicine 12/05/18 documented as of this encounter
--- OUTSIDE RECORDS SUMMARY | 2025-04-13 11:08 | XMS_ITS | Clinical Summary ---
Author Organization [facility] Office Center Address [address] [place] [address] Care Team Providers Care Circular Distributor Name Role Phone Soren Small MD Primary Care Provider [phone] Allergies Active Allergy Reactions Criticality Noted Date [...] by mouth daily 90 tablet 5 Active doxycycline hyclate 100 mg capsule Take 1 tablet/capsule (100 mg total) by mouth 2 (two) times a day 5 Active methylPREDNISolo ne (Medrol, Tunde,) 4 mg DosepackIndicati ons:Acute cough follow package directions 1 packet 5 Active Active Problems Problem Noted Date Diagnosed Date Acute cough 04/13/2025 Assessment & Plan (04/13/2025 10:07 AM CDT): Due to the acute cough I have ordered a chest x-ray and provide the patient with a Medrol Dosepak. The patient states that typically a Z-Tunde helps her the best. I did ask the patient to call back in if she does not feel better after completing the doxycycline. She did verbalize understanding. Cervical disc disorder with myelopathy of mid-cervical region 05/18/2024 Generalized anxiety disorder 09/09/2021 JESSICA (obstructive sleep apnea) 08/13/2020 Assessment & Plan (04/13/2025 10:06 AM CDT): Patient continue to wear her CPAP at auto titrating range of 5-15 cm water pressure while sleeping. Her DME is [facility] home care. Assessment & Plan (02/09/2024 3:27 PM CDT): Due to continued symptoms, the patient will continue with auto titrating CPAP set at 5-15 cm water pressure. Denied need for supplies. DME a [facility] Assessment & Plan (12/14/2022 2:09 PM CDT): Patient continue to wear her CPAP at an auto titrating range of 5-15 cm water pressure while sleeping. Her DME is [facility] Home Care. I have sent an order over for new supplies. Assessment & Plan (09/23/2021 11:11 AM CDT): Patient continue to wear her CPAP in auto titrating range of 5-15 cm water pressure while sleeping. Her DME is [facility] Home [facility]. The patient has received her replacement unit from [employer]. Assessment & Plan (08/13/2020 2:01 PM BARGE CAPTAIN): The patient will continue with CPAP therapy at 5 cm water pressure to treat obstructive sleep apnea. The patient did receive an order for new supplies. The DME company is [facility]. The patient is benefitting from CPAP therapy. Vitamin D deficiency 12/05/2018 Overview (12/05/2018): reviewed last labs and asked pt to go up to 2000 units/day Hypertension 02/13/2016 Resolved Problems Problem Noted Date Diagnosed Date Resolved Date Screening for colon cancer 01/12/2023 1 07/31/2023 Morbid obesity with BMI of 45.0-49.9, adult 12/05/2018 05/10/2023 Anxiety 02/13/2016 09/09/2021 Encounters Date Type Department Care Team Description 04/13/2025 9:45 AM CDT Office Visit [facility] Pulmonary [address] [place] [address] Pascale Rose NP JESSICA (obstructive sleep apnea) (Primary Dx); Acute cough 04/09/2025 Nurse Triage [facility] Family Medicine at [address] [place] [address] Tish Boss RN from Last [...] on file Legal Sex Female 6:58 AM BARGE CAPTAIN Gender Identity Not on file Sexual Orientation Straight 08/09/2022 10 :34 AM BARGE CAPTAIN Obstetrics History Para Term AB IAB SAB [...] Mass Index 48.88 04/13/2025 9:45 AM CDT Plan of Treatment Health Maintenance Due Date [...] this topic Medical Devices Implanted Type Area Ops Manager Device Identifier Shelf Expiration Date Model / Serial / Lot [employer] Disc Intervertebral Cervical Superior Simplify Size 2 [id number] - [id number] Implanted:Qty: 1 on 06/23/2024 by Henrry Correa MD PhD at [facility] N/A: Spine Cervical [employer] [id number] 09/29/2026 [id number] / / [id number] [employer] Disc Intervertebral Cervical Superior Simplify Size 2 [id number] - [id number] Implanted:Qty: 1 on 06/23/2024 by Henrry Correa MD PhD at [facility] N/A: Spine Cervical [employer] [id number] 03/01/2028 [id number] / / [id number] Procedures Procedure Name Priority Date/Time Associated Diagnosis Comments SCREENING MAMMOGRAM BILATERAL W FERNANDO Schedule Routine, Read Routine (OP Routine) 05/23/2024 8:26 AM BARGE CAPTAIN Encounter for screening mammogram for malignant neoplasm of breast COLONOSCOPY 07/27/2023 11:42 AM BARGE CAPTAIN HEPATITIS PANEL, ACUTE Routine 01/01/2015 10:50 AM CDT from Last 3 Months or Most Recently Relevant to Health Maintenance Results * Screening Mammogram Bilateral W Fernando (05/23/2024 8:26 AM BARGE CAPTAIN) Anatomical Region Laterality Modality Breast Bilateral Mammography Impressions 05/23/2024 10:59 AM BARGE CAPTAIN BI-RADS ATLAS category (overall): 1 - Negative There is no mammographic evidence of malignancy. A 1 year screening mammogram is recommended. The patient has been or will be contacted. We recommend annual screening mammography for women at average risk of breast cancer beginning at age 40, based on guidelines of the [employer] [place] [employer] (ACR Practice Parameter for the Performance of Screening and Diagnostic Mammography) and [place] [employer] Obstetricians and Gynecologists. For women with and elevated risk of breast cancer, please refer to the ACR Practice Parameter for specific screening recommendations. The patient will be entered into a reminder system with a target due date of 1 year for her next screening exam. Narrative 05/23/2024 10:59 AM BARGE CAPTAIN Screening Mammogram Bilateral W Fernando: 05/23/24 The study was acquired using full [...] Mother. COMPARISONS: 05/15/2023 Screening Mammogram Bilateral W Fernando 12/30/2021 SCREENING MAMMOGRAM BILATERAL W FERNANDO 06/15/2019 Screening Mammogram Bilateral W Fernando 05/09/2018 Screening Mammogram Bilateral W Fernando 04/14/2017 Screening Mammogram Bilateral W Fernando BREAST TISSUE: The breasts are heterogeneously dense, which may obscure small masses. FINDINGS: There is no new suspicious finding in either breast on mammogram. us Jennifer Reese MD IMG MAMMO PROCEDURES Final Result * COLONOSCOPY (07/27/2023 11:42 AM BARGE CAPTAIN) Anatomical Region Laterality Modality Other Narrative Procedure Note Marciano Head MD - 07/27/2023 11:42 AM CST [facility] GI ENDOSCOPY Patient Name: Kiki Lawson Procedure Date: 07/27/2023 11:42 AM Date of : 1970 Admit Type: Outpatient Age: 53 Gender: Female Attending MD: Marciano Head M.D. Room: [facility] ENDOSCOPY ROOM 06 Note Status: Finalized Procedure: [...] The scope was passed under direct vision.The [id number] colonoscope was introduced through theanus and advanced [...] On: 07/27/2023 11:42 AM Recognized by the [place] Society for Gastrointestinal Endoscopy for promoting quality [...] (immune status) REACTIVE(H) NONREACTIVE 01/01/2015 11:45 AM [employer] [employer] HISTORICAL RESULTS Comment: Siemens CentaurXP using FAREED (chemiluminescent immunoassay) technology. NONREACTIVE: IgM antibodies to Hepatitis B Surface antibody not detected. REACTIVE: IgM antibodies to Hepatitis B Surface antibody detected. Hep B core IgM NONREACT NONREACTIVE 5 12:22 PM [employer] [facility] [employer] HISTORICAL RESULTS Comment: Siemens CentaurXP using FAREED (chemiluminescent immunoassay) technology. NONREACTIVE: IgM antibodies to Hepatitis B Core antigen not detected. EQUIVOCAL: IgM antibodies to Hepatitis B Core antigen may or may not be present. Obtain a new specimen and retest. REACTIVE: IgM antibodies to Hepatitis B Core antigen detected. Hep A IgM NONREACT NONREACTIVE 01/01/2015 12:24 PM [employer] [facility] [employer] HISTORICAL RESULTS Comment: Siemens CentaurXP using FAREED [...] MICROBIOLOGY - GENER AL ORDERABLES Final Result [facility] HISTORICAL RESULTS from Last 3 Months or Most Recently Relevant to Health Maintenance Insurance [employer] Address: [facility] [id number] [place] [address] [employer] Address: [address] [place] [address] [facility] Care Teams Circular Distributor Relationship Specialty Start Date End Date Soren Small MD PCP - General Family Medicine 12/05/18
--- OUTSIDE RECORDS SUMMARY | 2025-04-13 11:08 | XMS_ITS | Encounter Summary ---
Author Organization [facility] Facility Care Team Providers Care Gang Plank Workman Name Role Phone Soren Small MD Primary Care Provider [phone] Encounter Details Date Type Department Care Team (Latest Contact Info) Description 10/22/2016 Orders Only [facility] CLINCONV ProviderBilly MD [address] [place] [address] Social History Tobacco Use Types Packs/Day Years Used Date Smoking Tobacco: Never Assessed Comments Unknown Sex and Gender Information Value Date Recorded Sex Assigned at Not on file Legal Sex Female 6:58 AM OWNER E [employer] Gender Identity Not on file Sexual Orientation Straight 08/09/2022 10 :34 AM [employer] documented as of this encounter Plan of Treatment Not on file documented as of this encounter Procedures Procedure Name Priority Date/Time Associated Diagnosis Comments PROCEDURE - RESULT 08/14/2016 12 :00 AM [employer] documented in this encounter Results * PROCEDURE - RESULT (08/14/2016 12:00 AM [employer]) Narrative 08/14/2016 12:00 AM [employer] Ordered by an unspecified provider. Historical Provider Final Res ult documented in this encounter Visit Diagnoses Not on filedocumented in this encounter Additional Health Concerns Infection Onset Date Last Indicated Resolved Time COVID: Suspected 05/22/2021 05/22/2021 05/23/2021 2:41 AM OWNER [employer] documented as of this encounter Care Teams Gang Plank Workman Relationship Specialty Start Date End Date Soren Small MD PCP - General Family Medicine 12/05/18 documented as of this encounter
--- OUTSIDE RECORDS SUMMARY | 2025-04-13 11:08 | XMS_ITS | Encounter Summary ---
Author Organization [facility] Facility Care Team Providers Care Transport Pilot Name Role Phone Soren Small MD Primary Care Provider [phone] Encounter Details Date Type Department Care Team (Latest Contact Info) Description 08/20/2016 Orders Only [facility]G CLINCONV ProviderBilly MD [address] [place] [address] Social History Tobacco Use Types Packs/Day Years Used Date Smoking Tobacco: Never Assessed Comments Unknown Sex and Gender Information Value Date Recorded Sex Assigned at Not on file Legal Sex Female 6:58 AM DUKEY RIDER Gender Identity Not on file Sexual Orientation Straight 08/09/2022 10 :34 AM DUKEY RIDER documented as of this encounter Plan of Treatment Not on file documented as of this encounter Procedures Procedure Name Priority Date/Time Associated Diagnosis Comments PROCEDURE - RESULT 08/14/2016 12 :00 AM DUKEY RIDER PROCEDURE - RESULT 07/21/2016 12 :00 AM DUKEY RIDER documented in this encounter Results * PROCEDURE - RESULT (08/14/2016 12:00 AM DUKEY RIDER) Narrative 08/14/2016 12:00 AM DUKEY RIDER Ordered by an unspecified provider. Historical Provider Final Res ult * PROCEDURE - RESULT (07/21/2016 12:00 AM DUKEY RIDER) Narrative 07/21/2016 12:00 AM DUKEY RIDER Ordered by an unspecified provider. us Historical Provider Final Res ult documented in this encounter Visit Diagnoses Not on filedocumented in this encounter Additional Health Concerns Infection Onset Date Last Indicated Resolved Time COVID: Suspected 05/22/2021 05/22/2021 05/23/2021 2:41 AM DUKEY RIDER documented as of this encounter Care Teams Transport Pilot Relationship Specialty Start Date End Date Soren Small MD PCP - General Family Medicine 12/05/18 documented as of this encounter
== END 2025-04-13 10:41 | disposition home or self-care (01) ==
PROVIDERS: PCP Family Medicine
DX: R05.1 Acute cough (principal)
CPT/HCPCS: 71046

== ENCOUNTER 2025-05-29 07:38 | Emergency (ER) | payer OTHER, SELFPAY ==
--- OUTSIDE RECORDS SUMMARY | 2025-05-28 10:15 | XMS_ITS | Encounter Summary ---
Author Organization [facility] Address [address] [place] [address] Care Team Providers Care Caregivers Non Medical Name Role Phone Soren Small MD Primary Care Provider [phone] Reason for Visit * Reason Comments Annual Exam Encounter Details Date Type Department Care Team ([facility] Contact Info) Description 05/28/2025 10:15 AM GANG BOSS Office Visit [facility] Family Medicine at [address] [place] [address] Xenia Griffith [address] [place], [place] [id number] Primary hypertension (Primary Dx); Generalized anxiety disorder; JESSICA (obstructive sleep apnea); Vitamin D deficiency; Class 3 severe obesity due to excess calories with serious comorbidity and body mass index (BMI) of 45.0 to 49.9 in adult; Screening for diabetes mellitus; Screening for thyroid disorder; Screening-pulmonary TB Social History Tobacco Use Types Packs/Day Years [...] points, staff should administer the PHQ-9) 0 05/28/2025 Personal Safety Answer Date Recorded Have you ever been in or are you currently in a harmful physical or emotional relationship or is someone making you feel afraid or unsafe? Denies 06/23/2024 Comments No Sex and Gender Information Value Date Recorded Sex Assigned at Not on file Legal Sex Female 6:58 AM GANG BOSS Gender Identity Not on file Sexual Orientation Straight 08/09/2022 10 :34 AM GANG BOSS documented as of this encounter Last Filed Vital Signs Vital Sign Reading Time Taken Comments Blood Pressure 110/82 05/28/2025 10:25 AM GANG BOSS Pulse 66 05/28/2025 10:25 AM GANG BOSS Temperature 36.1 C (97 F) 05/28/2025 10:25 AM GANG BOSS Respiratory Rate - - Oxygen Saturation 94% 05/28/2025 10:25 AM GANG BOSS Inhaled Oxygen Concentration - - Weight 119 kg (262 lb 6.4 oz) 05/28/2025 10:25 A M GANG BOSS Height 154.9 cm (5' 1) 05/28/2025 10:25 AM GANG BOSS Body Mass Index 49.58 05/28/2025 10:25 AM GANG BOSS documented in this encounter Functional Status * BP Location Answer Date of Assessment Author Left arm 05/28/2025 10:25 AM GANG BOSS Taylor Chavez MA * BP Location Answer Date of Assessment Author Left arm 05/28/2025 10:25 AM GANG BOSS Taylor Chavez MA documented as of this encounter Ordered Prescriptions Prescription Sig Dispense Quantity Refills Last Filled Start Date End Date losartan (COZAAR) 50 mg tabletIndications:P rimary hypertension Take 1 tablet (50 mg total) by mouth daily 90 tablet 3 05/28/2025 citalopram (CeleXA) 10 mg tabletIndications:G eneralized anxiety disorder Take 1 tablet (10 mg total) by mouth daily 90 tablet 3 05/28/2025 documented in this encounter Progress Notes * Xenia Griffith PA - 05/28/2025 10:15 AM CST Images from the original note were not included. Subjective/Objective Visit date: 05/28/2025 Patient ID: Kiki Lawson is a 54 y.o. female. Chief Complaint Chief Complaint Patient presents with Annual Exam Current Outpatient Medications: cholecalciferol (Vitamin D3) 1,000 unit capsule, Take 1 capsule (1,000 Units total) by mouth nightly, Disp: , Rfl: ibuprofen (ADVIL,MOTRIN) 800 mg tablet, Take 1 tablet (800 mg total) by mouth 3 (three) times a day, Disp: 30 tablet, Rfl: 0 methocarbamoL (ROBAXIN) 500 mg tablet, Take 1 tablet (500 mg total) by mouth every 12 (twelve) hours as needed for muscle spasms, Disp: 20 tablet, Rfl: 0 metroNIDAZOLE (METROGEL) 1 % gel, Apply 1 Application topically daily as needed (rosacea), Disp: , Rfl: multivitamin tablet, Take 1 tablet by mouth nightly, Disp: , Rfl: pimecrolimus (ELIDEL) 1 % cream, Apply 1 Application topically 2 (two) times a day as needed (skin irritation), Disp: , Rfl: citalopram (CeleXA) 10 mg tablet, Take 1 tablet (10 mg total) by mouth daily, Disp: 90 tablet, Rfl:3 losartan (COZAAR) 50 mg tablet, Take 1 tablet (50 mg total) by mouth daily, Disp: 90 tablet, Rfl: 3 Allergies Allergen Reactions Penicillin G Sodium Rash Sulfa (Sulfonamide Antibiotics) Rash Codeine Sulfate Vomiting HPI HTN; Pt is on losartan and doing well. She takes her BP all the time and it's always WNL. Is compliant with daily dosing. She has no h/o heart disease. She has no CP, SOB. Never smoked. no routine exercise currently. Anxiety: Takes daily citalopram. She is doing well and is scared to go off it. She still works two jobs. JESSICA: uses nightly CPAP. Started this around 2018. sees dr yl. Vit D def: Pt's last level was 21 in jun 2023 stopped the weekly dosing and takes a daily dose Mammo may 2024, colonoscopy 2023 PHQ Screening Over the last 2 weeks, how often have you been bothered by any of the following problems? Little Interest or Pleasure in Doing Things: 0-Not at all Feeling Down, Depressed, or Hopeless: 0-Not at all PHQ-2 Total Score (If total score is 3 or more points, staff should administer the PHQ-9): 0 Over the past 2 weeks, how often have you been bothered by any of the following problems? Little Interest or Pleasure in Doing Things: 0-Not at all Feeling Down, Depressed, or Hopeless: 0-Not at all PHQ-2 Total Score (If total score is 3 or more points, staff should administer the PHQ-9): 0 Review of Systems Constitutional: Positive for unexpected weight change (gain). Negative for fever. HENT: Negative for ear pain and sore throat. Eyes: Last eye exam one week ago Respiratory: Negative for cough and shortness of breath. Cardiovascular: Negative for chest pain. Gastrointestinal: Negative for abdominal pain, blood in stool, diarrhea, nausea and vomiting. Genitourinary: Negative for hematuria. Musculoskeletal: Negative for neck pain. Skin: Negative for rash. Neurological: Negative for dizziness and headaches. Psychiatric/Behavioral: Positive for sleep disturbance (JESSICA: see hPI). The patient is nervous/anxious (see HPI). Vitals BP 110/82 (BP Location: Left arm, Patient Position: Sitting) Pulse 66 Temp 36.1 ??C (97 ??F) (Temporal) Ht 154.9 cm (5' 1) Wt 119 kg (262 lb 6.4 oz) SpO2 94% BMI 49.58 kg/m?? Physical Exam Constitutional: General: She is not in acute distress. Appearance: Normal appearance. She is morbidly obese. She is not ill-appearing. Neck: Vascular: No carotid bruit. Cardiovascular: Rate and Rhythm: Normal rate and regular rhythm. Heart sounds: Normal heart sounds. Pulmonary: Effort: Pulmonary effort is normal. Breath sounds: Normal breath sounds. Musculoskeletal: Right lower leg: No edema. Left lower leg: No edema. Lymphadenopathy: Cervical: No cervical adenopathy. Neurological: Mental Status: She is alert and oriented to person, place, and time. Gait: Gait normal. Psychiatric: Mood and Affect: Mood normal. Diagnoses and all orders for this visit: Primary hypertension (Primary) Comments: stable, cont losartan, incr exercise, check labs Orders: - CBC with auto differential; Future - Comprehensive metabolic panel; Future - Lipid panel; Future - Vitamin D 25 hydroxy; Future - losartan (COZAAR) 50 mg tablet; Take 1 tablet (50 mg total) by mouth daily Generalized anxiety disorder Comments: stable, cont celexa. Orders: - citalopram (CeleXA) 10 mg tablet; Take 1 tablet (10 mg total) by mouth daily JESSICA (obstructive sleep apnea) Comments: stable on nightly CPAP Vitamin D deficiency Comments: check serum level, cont supplement dose pending results Orders: - Vitamin D 25 hydroxy; Future Class 3 severe obesity due to excess calories with serious comorbidity and body mass index (BMI) of45.0 to 49.9 in adult Comments: discussed restarting GLP-1, she is unsure if insurance covers this. we discussed [facility] Screening for diabetes mellitus Comments: check A1C, positive FH, pt has other risk factors Orders: - Hemoglobin A1c; Future Screening for thyroid disorder Comments: check TSH for screeniing, weight gain Orders: - Thyroid Function [place]; Future Screening-pulmonary TB Comments: pt requires testing for her job Orders: - TB test, quantiferon gold; Future Return in about 1 year (around 05/28/2026). Xenia Griffith PA-C BOSS documented in this encounter Plan of Treatment Scheduled Orders Name Type Priority Associated Diagnoses Orde r Schedule CBC with auto differential Lab Routine Primary hypertension Expected: 05/28/2025, Expires: 05/28/2026 Comprehensive metabolic panel Lab Routine Primary hypertension Expected: 05/28/2025, Expires: 05/28/2026 Lipid panel Lab Routine Primary hypertension Expected: 05/28/2025, Expires: 05/28/2026 Vitamin D 25 hydroxy Lab Routine Primary hypertension Vitamin D deficiency Expected: 05/28/2025, Expires: 05/28/2026 Thyroid Function [place] Lab Routine Screening for thyroid disorder Expected: 05/28/2025, Expires: 05/28/2026 Hemoglobin A1c Lab Routine Screening for diabetes mellitus Expected: 05/28/2025, Expires: 05/28/2026 TB test, quantiferon gold Lab Routine Screening-pulmonary TB Expected: 05/31/2025, Expires: 05/28/2026 documented as of this encounter Visit Diagnoses Diagnosis Primary hypertension- Primary Unspecified essential hypertension Generalized anxiety disorder JESSICA (obstructive sleep apnea) Obstructive sleep apnea (adult) (pediatric) Vitamin D deficiency Class 3 severe obesity due to excess calories with serious comorbidity and body mass index (BMI) of 45.0 to 49.9 in adult Screening for diabetes mellitus Screening for thyroid disorder Screening-pulmonary TB Screening examination for pulmonary tuberculosis documented in this encounter Discontinued Medications Medication Sig Discontinue Reason Start Date End Da te methylPREDNISolone (Medrol, Tunde,) 4 mg DosepackIndications:Acu te cough follow package directions Therapy completed 04/20/2025 05/28/2025 azithromycin (ZITHROMAX) 250 mg tabletIndications:Upper Respiratory/HEENT Infection Take 2 tablets the first day, then 1 tablet daily for 4 days. Therapy completed 04/17/2025 05/28/2025 doxycycline hyclate 100 mg capsule Take 1 tablet/capsule (100 mg total) by mouth 2 (two) times a day 04/09/2025 05/28/2025 mupirocin (BACTROBAN) 2 % ointment Apply to each nostril 2 (two) times a day Apply pea size amount into each nostril twice a day for 5 days prior to surgery. Therapy completed 05/18/2024 05/28/2025 terbinafine (LamiSIL) 250 mg tablet Take 1 tablet (250 mg total) by mouth nightly Therapy completed 04/13/2024 05/28/2025 citalopram (CeleXA) 10 mg tabletIndications:Gener alized anxiety disorder Take 1 tablet (10 mg total) by mouth daily Reorder 02/27/2025 05/28/2025 losartan (COZAAR) 50 mg tabletIndications:Prima ry hypertension Take 1 tablet (50 mg total) by mouth daily Reorder 02/27/2025 05/28/2025 documented as of this encounter Care Teams Caregivers Non Medical Relationship Specialty Start Date End Date Soren Small MD PCP - General Family Medicine 12/05/18 documented as of this encounter
--- OUTSIDE RECORDS SUMMARY | 2025-05-28 10:15 | XMS_ITS | Encounter Summary ---
Author Organization [facility] Address [address] [place] [address] Care Team Providers Care Sizing Machine Tender Name Role Phone Soren Small MD Primary Care Provider [phone] Reason for Visit * Reason Comments Annual Exam Encounter Details Date Type Department Care Team ([facility] Contact Info) Description 05/28/2025 10:15 AM CLIMATOLOGIST Office Visit [facility] Family Medicine at [address] [place] [address] [address] [place], [place] [id number] Primary hypertension (Primary Dx); Generalized anxiety disorder; [...] on file Legal Sex Female 6:58 AM CLIMATOLOGIST Gender Identity Not on file Sexual Orientation Straight 08/09/2022 10 :34 AM CLIMATOLOGIST documented as of this encounter Last Filed Vital Signs Vital Sign Reading Time Taken Comments Blood Pressure 110/82 05/28/2025 10:25 AM CLIMATOLOGIST Pulse 66 05/28/2025 10:25 AM CLIMATOLOGIST Temperature 36.1 C (97 F) 05/28/2025 10:25 AM CLIMATOLOGIST Respiratory Rate - - Oxygen Saturation 94% 05/28/2025 10:25 AM CLIMATOLOGIST Inhaled Oxygen Concentration - - Weight 119 kg (262 lb 6.4 oz) 05/28/2025 10:25 A M CLIMATOLOGIST Height 154.9 cm (5' 1) 05/28/2025 10:25 AM CLIMATOLOGIST Body Mass Index 49.58 05/28/2025 10:25 AM CLIMATOLOGIST documented in this encounter Functional Status * BP Location Answer Date of Assessment Author Left arm 05/28/2025 10:25 AM CLIMATOLOGIST Taylor Chavez MA * BP Location Answer Date of Assessment Author Left arm 05/28/2025 10:25 AM CLIMATOLOGIST Taylor Chavez MA documented as of this [...] CPAP. Started this around 2018. sees dr ly. Vit D def: Pt's last level was [...] screeniing, weight gain Orders: - Thyroid Function [place]; Future Screening-pulmonary TB Comments: pt requires testing for her job Orders: - TB test, quantiferon gold; Future Return in about 1 year (around 05/28/2026). Xenia Griffith PA-C ATOLOGIST documented in this encounter Plan of Treatment [...] deficiency Expected: 05/28/2025, Expires: 05/28/2026 Thyroid Function [place] Lab Routine Screening for thyroid disorder Expected: [...] documented as of this encounter Care Teams Sizing Machine Tender Relationship Specialty Start Date End Date Soren Small MD PCP - General Family Medicine 12/05/18 documented as of this encounter
--- NOTE | ~2025-05-29 | XR_ITS ---
EXAMINATION: XR shoulder LT min 2V, 05/29/2025 8:00 LITERACY CONSULTANT HISTORY: pain, worse w/ movement, ANTERIOR, X 2 DAYS COMPARISON: No comparisons available. Findings: No acute fracture or malalignment. No significant degenerative changes. Soft tissues unremarkable. Impression: No acute fracture or malalignment. Reviewed, dictated and finalized at location P. RACY CONSULTANT Impression: No acute fracture or malalignment.
--- OUTSIDE RECORDS SUMMARY | 2025-05-29 07:40 | XMS_ITS | Encounter Summary ---
Author Organization [facility] Care Team Providers Care Proposal Coordinator Name Role Phone Soren Small MD Primary Care Provider [phone] Encounter Details Date Type Department Care Team (Latest Contact Info) Description 08/20/2016 Orders Only [facility]IN[facility] ProviderBilly MD [address] [place] [id number] Social History Tobacco Use Types Packs/Day Years Used Date Smoking Tobacco: Never Assessed Comments Unknown Sex and Gender Information Value Date Recorded Sex Assigned at Not on file Legal Sex Female 6:58 AM MUSIC THEORY TEACHER Gender Identity Not on file Sexual Orientation Straight 08/09/2022 10 :34 AM MUSIC THEORY TEACHER documented as of this encounter Plan of Treatment Not on file documented as of this encounter Procedures Procedure Name Priority Date/Time Associated Diagnosis Comments PROCEDURE - RESULT 08/14/2016 12 :00 AM MUSIC THEORY TEACHER PROCEDURE - RESULT 07/21/2016 12 :00 AM MUSIC THEORY TEACHER documented in this encounter Results * PROCEDURE - RESULT (08/14/2016 12:00 AM MUSIC THEORY TEACHER) Narrative 08/14/2016 12:00 AM MUSIC THEORY TEACHER Ordered by an unspecified provider. Historical Provider Final Res ult * PROCEDURE - RESULT (07/21/2016 12:00 AM MUSIC THEORY TEACHER) Narrative 07/21/2016 12:00 AM MUSIC THEORY TEACHER Ordered by an unspecified provider. us Historical Provider Final Res ult documented in this encounter Visit Diagnoses Not on filedocumented in this encounter Additional Health Concerns Infection Onset Date Last Indicated Resolved Time COVID: Suspected 05/22/2021 05/22/2021 05/23/2021 2:41 AM MUSIC THEORY TEACHER documented as of this encounter Care Teams Proposal Coordinator Relationship Specialty Start Date End Date Soren Small MD PCP - General Family Medicine 12/05/18 documented as of this encounter
--- OUTSIDE RECORDS SUMMARY | 2025-05-29 07:40 | XMS_ITS | Clinical Summary ---
Author Organization [facility] Office Center Address [address] [place] [address] Care Team Providers Care Human Capital Manager Name Role Phone Soren Small MD Primary Care Provider [phone] Allergies Active Allergy Reactions Criticality Noted Date Comments Codeine Sulfate Vomiting Low 10/11/2018 Penicillin G Sodium Rash Medium 10/11/2018 Sulfa (Sulfonamide Antibiotics) Rash Medium 09/14 Medications metroNIDAZOLE (METROGEL) 1 % gel Apply 1 Application topically daily as needed (rosacea) 07/18/19 22 Active pimecrolimus (ELIDEL) 1 % cream Apply 1 Application topically 2 (two) times a day as needed (skin irritation) 07/21/19 22 Active ibuprofen (ADVIL,MOTRIN) 800 mg tabletIndication s:Myalgia Take 1 tablet (800 mg total) by mouth 3 (three) times a day 30 tablet 12/17/19 24 Active methocarbamoL (ROBAXIN) 500 mg tablet Take 1 tablet (500 mg total) by mouth every 12 (twelve) hours as needed for muscle spasms 20 tablet 12/26/19 24 Active multivitamin tablet Take 1 tablet by mouth nightly Active cholecalciferol (Vitamin D3) 1,000 unit capsule Take 1 capsule (1,000 Units total) by mouth nightly Active citalopram (CeleXA) 10 mg tabletIndication s:Generalized anxiety disorder Take 1 tablet (10 mg total) by mouth daily 90 tablet 3 05/28/20 25 Active losartan (COZAAR) 50 mg tabletIndication s:Primary hypertension Take 1 tablet (50 mg total) by mouth daily 90 tablet 3 05/28/20 25 Active mupirocin (BACTROBAN) 2 % ointment Apply to each nostril 2 (two) times a day Apply pea size amount into each nostril twice a day for 5 days prior to surgery. 22 g 05/18/20 24 025 Discontin ued(Thera py completed ) terbinafine (LamiSIL) 250 mg tablet Take 1 tablet (250 mg total) by mouth nightly 04/13/20 24 025 Discontin ued(Thera py completed ) citalopram (CeleXA) 10 mg tabletIndication s:Generalized anxiety disorder Take 1 tablet (10 mg total) by mouth daily 90 tablet 02/28/20 25 025 Discontin ued(Reord er) losartan (COZAAR) 50 mg tabletIndication s:Primary hypertension Take 1 tablet (50 mg total) by mouth daily 90 tablet 02/28/20 25 025 Discontin ued(Reord er) doxycycline hyclate 100 mg capsule Take 1 tablet/capsule (100 mg total) by mouth 2 (two) times a day 04/09/20 25 025 Discontin ued(Pregn deysi) azithromycin (ZITHROMAX) 250 mg tabletIndication s:Upper Respiratory/HEEN T Infection Take 2 tablets the first day, then 1 tablet daily for 4 days. 6 tablet 04/17/20 25 025 Discontin ued(Thera py completed ) methylPREDNISolo ne (Medrol, Tunde,) 4 mg DosepackIndicati ons:Acute cough follow package directions 1 packet 04/20/20 25 025 Discontin ued(Thera py completed ) Active Problems Problem Noted Date Diagnosed Date Cervical disc disorder with myelopathy of mid-cervical region 05/18/2024 Generalized anxiety disorder 09/09/2021 JESSICA (obstructive sleep apnea) 08/13/2020 Assessment & Plan (04/13/2025 10:06 AM CDT): Patient continue to wear her CPAP at auto titrating range of 5-15 cm water pressure while sleeping. Her DME is [facility] home care. Assessment & Plan (02/09/2024 3:27 PM CDT): Due to continued symptoms, the patient will continue with auto titrating CPAP set at 5-15 cm water pressure. Denied need for supplies. DME a [facility] Assessment & Plan (12/14/2022 2:09 PM CDT): Patient continue to wear her CPAP at an auto titrating range of 5-15 cm water pressure while sleeping. Her DME is [facility] Home Care. I have sent an order over for new supplies. Assessment & Plan (09/23/2021 11:11 AM CDT): Patient continue to wear her CPAP in auto titrating range of 5-15 cm water pressure while sleeping. Her DME is [facility] Home Care. The patient has received her replacement unit from [facility]. Assessment & Plan (08/13/2020 2:01 PM WHEAT SHIPPER): The patient will continue with CPAP therapy at 5 cm water pressure to treat obstructive sleep apnea. The patient did receive an order for new supplies. The DME company is [facility]. The patient is benefitting from CPAP therapy. Vitamin D deficiency 12/05/2018 Overview (12/05/2018): reviewed last labs and asked pt to go up to 2000 units/day Hypertension 02/13/2016 Resolved Problems Problem Noted Date Diagnosed Date Resolved Date Acute cough 04/13/2025 05/28/2025 Assessment & Plan (04/13/2025 10:07 AM CDT): Due to the acute cough I have ordered a chest x-ray and provide the patient with a Medrol Dosepak. The patient states that typically a Z-Tunde helps her the best. I did ask the patient to call back in if she does not feel better after completing the doxycycline. She did verbalize understanding. Screening for colon cancer 01/12/2023 1 07/31/2023 Morbid obesity with BMI of 45.0-49.9, adult 12/05/2018 05/10/2023 Anxiety 02/13/2016 09/09/2021 Encounters Date Type Department Care Team Description 05/28/2025 10:15 AM WHEAT SHIPPER Office Visit [facility] Family Medicine at [address] [place] [address] Xenia Griffith PA Primary hypertension (Primary Dx); Generalized anxiety disorder; JESSICA (obstructive sleep apnea); Vitamin D deficiency; Class 3 severe obesity due to excess calories with serious comorbidity and body mass index (BMI) of 45.0 to 49.9 in adult; Screening for diabetes mellitus; Screening for thyroid disorder; Screening-pulmonary TB 04/20/2025 Orders Only [address] [phone] Pascale Rose NP Acute cough 04/17/2025 Orders Only [address] [phone] Pascale Rose NP 04/16/2025 Orders Only [facility] Family Medicine at [address] [address] Pascale Rose NP Acute cough 04/13/2025 9:45 AM CDT Office Visit [address] [phone] Pascale Rose NP JESSICA (obstructive sleep apnea) (Primary Dx); Acute cough 04/09/2025 Nurse Triage [facility] Family Medicine at [address] [place] [address] Tish Boss RN from Last 3 Months Immunizations Immunization Administration Dates Next Due Influenza, Quadrivalent, Spl it, Preservative Free, Intramuscular 04/05/2023,04/22/2022 Influenza, Trivalent, Preser vative Free, Intramuscular 03/27/2025,04/11/2024 Influenza, Unspecified 03/14/2024,03/16/2022, Pfizer SARS-CoV-2 Monovalent Vaccination (12+ Yrs) PURPLE 06/24/2020,06/04/2020 Tdap 09/06/2024 ZOSTER Recombinant 05/16/2024,03/01/2024 Surgical History Surgery Date Site/Laterality Comments SECTION FOOT SURGERY Left ENDOMETRIAL ABLATION BREAST BIOPSY Left CARPAL TUNNEL RELEASE Right COLONOSCOPY in her 's UPPER GASTROINTESTINAL ENDOSCOPY in her 's severe gastritis OTHER SURGICAL HISTORY 06/23/2024 C4-C7 Disc Replacement Medical History Medical History Date Comments Anxiety [...] on file Legal Sex Female 6:58 AM WHEAT SHIPPER Gender Identity Not on file Sexual Orientation Straight 08/09/2022 10 :34 AM WHEAT SHIPPER Obstetrics History Para Term AB IAB SAB Ectopic Multiple Livin g Live Births 3 3 3 Date Outcome GA Total Labor Labor/2nd/3rd Weight Sex Type Anes PTL Vivienne A1 A5 Name Clin Term Term Term Last Filed Vital Signs Vital Sign Reading Time Taken Comments Blood Pressure 110/82 05/28/2025 10:25 AM WHEAT SHIPPER Pulse 66 05/28/2025 10:25 AM WHEAT SHIPPER Temperature 36.1 C (97 F) 05/28/2025 10:25 AM WHEAT SHIPPER Respiratory Rate 18 04/13/2025 9:45 AM CDT Oxygen Saturation 94% 05/28/2025 10:25 AM WHEAT SHIPPER Inhaled Oxygen Concentration - - Weight 119 kg (262 lb 6.4 oz) 05/28/2025 10:25 A M WHEAT SHIPPER Height 154.9 cm (5' 1) 05/28/2025 10:25 AM WHEAT SHIPPER Body Mass Index 49.58 05/28/2025 10:25 AM WHEAT SHIPPER Plan of Treatment Health Maintenance Due Date Last Done Comments Cervical Cancer Screening 1970 Regular Well Visit/Exam 18-64 1990 Covid-19 Vaccine ( season) 2025 06/24/2020, 06/04/2020 Breast Cancer Screening-Mammogram 05/23/2025 05/23/2024, 05/15/2023, 12/30/2021, Additional history exists Depression Screening 05/28/2026 05/28/2025, 05/30/2024, 05/10/2023, Additional history exists Colon Cancer Screening-Colonoscopy 07/27/2026 07/27/2023 DTaP/Tdap/Td Vaccine (2 - Td or Tdap) 09/06/2034 09/06/2024 Hepatitis B Screening Completed 01/01/2015 Hepatitis C Screening Completed 01/01/2015 Zoster Vaccine Completed 05/16/2024, 03/01/2024 Influenza Vaccine Completed 03/27/2025, , 03/14/2024, Additional history exists Pneumococcal vaccine <65 Aged Out No longer eligible based on patient's age to complete this topic Medical Devices Implanted Type Area Commercial Driver Device Identifier Shelf Expiration Date Model / Serial / Lot [employer] Disc Intervertebral Cervical Superior Simplify Size 2 [id number] - [id number] Implanted:Qty: 1 on 06/23/2024 by Henrry Correa MD PhD at [facility] N/A: Spine Cervical [employer] [id number] 09/29/2026 [id number] / / [id number] [employer] Disc Intervertebral Cervical Superior Simplify Size 2 [id number] - [id number] Implanted:Qty: 1 on 06/23/2024 by Henrry Correa MD PhD at [facility] N/A: Spine Cervical [employer] [id number] 03/01/2028 [id number] P2 / / [id number] Procedures Procedure Name Priority Date/Time Associated Diagnosis Comments XR CHEST PA LATERAL 2 VIEWS Schedule Routine, Read Routine (OP Routine) 04/16/2025 5:38 PM WHEAT SHIPPER Acute cough SCREENING MAMMOGRAM BILATERAL W FERNANDO Schedule Routine, Read Routine (OP Routine) 05/23/2024 8:26 AM WHEAT SHIPPER Encounter for screening mammogram for malignant neoplasm of breast COLONOSCOPY 07/27/2023 11:42 AM WHEAT SHIPPER HEPATITIS PANEL, ACUTE Routine 01/01/2015 10:50 AM CDT from Last 3 Months or Most Recently Relevant to Health Maintenance Results * XR Chest Pa Lateral 2 Views (04/16/2025 5:38 PM WHEAT SHIPPER) Anatomical Region Laterality Modality Body, Chest N/A Radiographic Elo ging Pascale Rose MERCURY CELL CLEANER IMG XR PROCEDURES Final Result * Screening Mammogram Bilateral W Fernando (05/23/2024 8:26 AM WHEAT SHIPPER) Anatomical Region Laterality Modality Breast Bilateral Mammography Impressions 05/23/2024 10:59 AM WHEAT SHIPPER BI-RADS ATLAS category (overall): 1 - Negative There is no mammographic evidence of malignancy. A 1 year screening mammogram is recommended. The patient has been or will be contacted. We recommend annual screening mammography for women at average risk of breast cancer beginning at age 40, based on guidelines of the [place] [employer] (ACR Practice Parameter for the Performance of Screening and Diagnostic Mammography) and [place] [employer]. For women with and elevated risk of breast cancer, please refer to the ACR Practice Parameter for specific screening recommendations. The patient will be entered into a reminder system with a target due date of 1 year for her next screening exam. Narrative 05/23/2024 10:59 AM WHEAT SHIPPER Screening Mammogram Bilateral W Fernando: 05/23/24 The [...] Final Result * COLONOSCOPY (07/27/2023 11:42 AM WHEAT SHIPPER) Anatomical Region Laterality Modality Other Narrative Procedure Note Marciano Head MD - 07/27/2023 11:42 AM CST [facility] GI ENDOSCOPY Patient Name: Kiki Lawson Procedure Date: 07/27/2023 11:42 AM Date of : 1970 Admit Type: Outpatient Age: 53 Gender: Female Attending MD: Marciano Head M.D. Room: [facility] ENDOSCOPY ROOM 06 Note Status: Finalized Procedure: [...] The scope was passed under direct vision.The [id number]-[id number] colonoscope was introduced through theanus and advanced [...] On: 07/27/2023 11:42 AM Recognized by the [place] [employer] for promoting quality in endoscopy Marciano Head MD ENDOSCOPY PROCEDURES Final Resul t * (ABNORMAL) Hepatitis panel, acute (01/01/2015 10:50 AM T) HepBsAg NONREACT NONREACTIVE Comment: Siemens CentaurXP using [...] core IgM NONREACT NONREACTIVE 5 12:22 PM [facility] HISTORICAL RESULTS Comment: Siemens CentaurXP using FAREED (chemiluminescent immunoassay) technology. NONREACTIVE: IgM antibodies to Hepatitis B Core antigen not detected. EQUIVOCAL: IgM antibodies to Hepatitis B Core antigen may or may not be present. Obtain a new specimen and retest. REACTIVE: IgM antibodies to Hepatitis B Core antigen detected. Hep A IgM NONREACT NONREACTIVE 01/01/2015 12:24 PM T [facility] HISTORICAL RESULTS Comment: Siemens CentaurXP using FAREED (chemiluminescent immunoassay) technology. NONREACTIVE: IgM antibodies to Hepatitis A not detected. This does not exclude possibility of exposure to Hepatitis A or early acute infection. EQUIVOCAL:IgM antibodies to Hepatitis A may or may not be present. Suggest recollection and retest. REACTIVE: Antibodies to Hepatitis A detected. Hep C Ab NONREACT NONREACTIVE 01/01/2015 12:22 PM CDT [facility] [place] HISTORICAL RESULTS Comment: Siemens CentaurXP using FAREED [...] MICROBIOLOGY - GENER AL ORDERABLES Final Result [facility] [place] HISTORICAL RESULTS from Last 3 Months or Most Recently Relevant to Health Maintenance Insurance [employer] [facility] [facility] [employer] Address: [address] [place] [address] [facility] [employer] Address: [address] [place] [address] [facility] Care Teams Human Capital Manager Relationship Specialty Start Date End Date Soren Small MD PCP - General Family Medicine 12/05/18
--- OUTSIDE RECORDS SUMMARY | 2025-05-29 07:40 | XMS_ITS | Encounter Summary ---
Author Organization [facility] Facility Care Team Providers Care Processor Helper Name Role Phone Soren Small MD Primary Care Provider [phone] Encounter Details Date Type Department Care Team (Latest Contact Info) Description 10/22/2016 Orders Only [facility] ProviderBilly MD [address] [place] [address] Social History Tobacco Use Types Packs/Day Years Used Date Smoking Tobacco: Never Assessed Comments Unknown Sex and Gender Information Value Date Recorded Sex Assigned at Not on file Legal Sex Female 6:58 AM LAWNMOWER MECHANIC Gender Identity Not on file Sexual Orientation Straight 08/09/2022 10 :34 AM LAWNMOWER MECHANIC documented as of this encounter Plan of Treatment Not on file documented as of this encounter Procedures Procedure Name Priority Date/Time Associated Diagnosis Comments PROCEDURE - RESULT 08/14/2016 12 :00 AM LAWNMOWER MECHANIC documented in this encounter Results * PROCEDURE - RESULT (08/14/2016 12:00 AM LAWNMOWER MECHANIC) Narrative 08/14/2016 12:00 AM LAWNMOWER MECHANIC Ordered by an unspecified provider. Historical Provider Final Res ult documented in this encounter Visit Diagnoses Not on filedocumented in this encounter Additional Health Concerns Infection Onset Date Last Indicated Resolved Time COVID: Suspected 05/22/2021 05/22/2021 05/23/2021 2:41 AM LAWNMOWER MECHANIC documented as of this encounter Care Teams Processor Helper Relationship Specialty Start Date End Date Soren Small MD PCP - General Family Medicine 12/05/18 documented as of this encounter
[2025-05-29 07:45] VITALS: BP 181/107; PULSE 83; RESP 15; TEMP 36.6; O2SAT 97
--- NOTE | 2025-05-29 07:49 | ECG_ITS ---
Test Date: 2025-05-29 07:56:58 Measurements Intervals Merna Rate: 72 P: 30 OK: 155 QRS: 26 QRSD: 94 T: 33 QT: 391 QTc: 429 Interpretive Statements SINUS RHYTHM CONSIDER INFERIOR INFARCT, AGE INDETERMINATE BASELINE ARTIFACT- I, II, III, AVR, AVL AVF, V1-V2 ABNORMAL ECG No previous ECG available for comparison Electronically Signed On 05-29-2025 08:16:52 OSCILLOGRAPH TECHNICIAN by Umer Moe D.O.
[2025-05-29] MEDS: KETOROLAC 30 MG/ML VIAL (*BKC) 15 MG IM (07:57)
--- OUTSIDE RECORDS SUMMARY | 2025-05-29 08:27 | XMS_ITS | Encounter Summary ---
Author Organization [facility] Facility Care Team Providers Care Electrical Appliance Mechanic Name Role Phone Soren Small MD Primary Care Provider [phone] Encounter Details Date Type Department Care Team (Latest Contact Info) Description 10/22/2016 Orders Only [facility]INCON[facility] ProviderBilly MD [address] [place] [address] Social History Tobacco Use Types Packs/Day Years Used Date Smoking Tobacco: Never Assessed Comments Unknown Sex and Gender Information Value Date Recorded Sex Assigned at Not on file Legal Sex Female 6:58 AM RADIATION TECHNICIAN Gender Identity Not on file Sexual Orientation Straight 08/09/2022 10 :34 AM RADIATION TECHNICIAN documented as of this encounter Plan of Treatment Not on file documented as of this encounter Procedures Procedure Name Priority Date/Time Associated Diagnosis Comments PROCEDURE - RESULT 08/14/2016 12 :00 AM RADIATION TECHNICIAN documented in this encounter Results * PROCEDURE - RESULT (08/14/2016 12:00 AM RADIATION TECHNICIAN) Narrative 08/14/2016 12:00 AM RADIATION TECHNICIAN Ordered by an unspecified provider. Historical Provider Final Res ult documented in this encounter Visit Diagnoses Not on filedocumented in this encounter Additional Health Concerns Infection Onset Date Last Indicated Resolved Time COVID: Suspected 05/22/2021 05/22/2021 05/23/2021 2:41 AM RADIATION TECHNICIAN documented as of this encounter Care Teams Electrical Appliance Mechanic Relationship Specialty Start Date End Date Soren Small MD PCP - General Family Medicine 12/05/18 documented as of this encounter
--- OUTSIDE RECORDS SUMMARY | 2025-05-29 08:27 | XMS_ITS | Clinical Summary ---
Author Organization [facility] Office Center Address [address] [place] [address] Care Team Providers Care Nonprofit Manager Name Role Phone Soren Small MD Primary Care Provider [phone] Allergies Active Allergy Reactions Criticality Noted Date [...] water pressure while sleeping. Her DME is [facility] home care. Assessment & Plan (02/09/2024 3:27 PM CDT): Due to continued symptoms, the patient will continue with auto titrating CPAP set at 5-15 cm water pressure. Denied need for supplies. DME a [facility] Assessment & Plan (12/14/2022 2:09 PM CDT): Patient continue to wear her CPAP at an auto titrating range of 5-15 cm water pressure while sleeping. Her DME is [facility] Home [facility]. I have sent an order over for new supplies. Assessment & Plan (09/23/2021 11:11 AM CDT): Patient continue to wear her CPAP in auto titrating range of 5-15 cm water pressure while sleeping. Her DME is [facility]. The patient has received her replacement unit from [facility]. Assessment & Plan (08/13/2020 2:01 PM LABEL SEWER): The patient will continue with CPAP therapy at 5 cm water pressure to treat obstructive sleep apnea. The patient did receive an order for new supplies. The DME company is [facility]. The patient is benefitting from CPAP [...] Department Care Team Description 05/28/2025 10:15 AM LABEL SEWER Office Visit [facility] at [address] [place] [address] Xenia Griffith PA Primary hypertension (Primary Dx); Generalized anxiety disorder; JESSICA (obstructive sleep apnea); Vitamin D deficiency; Class 3 severe obesity due to excess calories with serious comorbidity and body mass index (BMI) of 45.0 to 49.9 in adult; Screening for diabetes mellitus; Screening for thyroid disorder; Screening-pulmonary TB 04/20/2025 Orders Only [address] [address] Pascale Rose NP Acute cough 04/17/2025 Orders Only [address] [address] Pascale Rose NP 04/16/2025 Orders Only [facility] Family [facility] at [address] [address] Pascale Rose NP Acute cough 04/13/2025 9:45 AM CDT Office Visit [address] [phone] Pascale Rose NP JESSICA (obstructive sleep apnea) (Primary Dx); Acute cough 04/09/2025 Nurse Triage [facility] at [address] [place] [address] Tish Boss RN from Last 3 Months [...] on file Legal Sex Female 6:58 AM LABEL SEWER Gender Identity Not on file Sexual Orientation Straight 08/09/2022 10 :34 AM LABEL SEWER Obstetrics History Para Term AB IAB SAB Ectopic Multiple Livin g Live Births 3 3 3 Date Outcome GA Total Labor Labor/2nd/3rd Weight Sex Type Anes PTL Vivienne A1 A5 Name Clin Term Term Term Last Filed Vital Signs Vital Sign Reading Time Taken Comments Blood Pressure 110/82 05/28/2025 10:25 AM LABEL SEWER Pulse 66 05/28/2025 10:25 AM LABEL SEWER Temperature 36.1 C (97 F) 05/28/2025 10:25 AM LABEL SEWER Respiratory Rate 18 04/13/2025 9:45 AM CDT Oxygen Saturation 94% 05/28/2025 10:25 AM LABEL SEWER Inhaled Oxygen Concentration - - Weight 119 kg (262 lb 6.4 oz) 05/28/2025 10:25 A M LABEL SEWER Height 154.9 cm (5' 1) 05/28/2025 10:25 AM LABEL SEWER Body Mass Index 49.58 05/28/2025 10:25 AM LABEL SEWER Plan of Treatment Health Maintenance Due Date [...] this topic Medical Devices Implanted Type Area Wad Lubricator Device Identifier Shelf Expiration Date Model / Serial / Lot [employer] Disc Intervertebral Cervical Superior Simplify Size 2 [id number] - [id number] Implanted:Qty: 1 on 06/23/2024 by Henrry Correa MD PhD at [facility] N/A: Spine Cervical [employer] [id number] 09/29/2026 [id number] / / [id number] [employer] Disc Intervertebral Cervical Superior Simplify Size 2 [id number] - [id number] Implanted:Qty: 1 on 06/23/2024 by Henrry Correa MD PhD at [facility] N/A: Spine Cervical [employer] [id number] 03/01/2028 [id number] / / [id number] Procedures Procedure Name Priority Date/Time Associated Diagnosis Comments XR CHEST PA LATERAL 2 VIEWS Schedule Routine, Read Routine (OP Routine) 04/16/2025 5:38 PM LABEL SEWER Acute cough SCREENING MAMMOGRAM BILATERAL W FERNANDO Schedule Routine, Read Routine (OP Routine) 05/23/2024 8:26 AM LABEL SEWER Encounter for screening mammogram for malignant neoplasm of breast COLONOSCOPY 07/27/2023 11:42 AM LABEL SEWER HEPATITIS PANEL, ACUTE Routine 01/01/2015 10:50 AM CDT from Last 3 Months or Most Recently Relevant to Health Maintenance Results * XR Chest Pa Lateral 2 Views (04/16/2025 5:38 PM LABEL SEWER) Anatomical Region Laterality Modality Body, Chest N/A Radiographic Elo ging Pascale Rose HEALTH INFORMATION CLERK IMG XR PROCEDURES Final Result * Screening Mammogram Bilateral W Fernando (05/23/2024 8:26 AM LABEL SEWER) Anatomical Region Laterality Modality Breast Bilateral Mammography Impressions 05/23/2024 10:59 AM LABEL SEWER BI-RADS ATLAS category (overall): 1 - Negative There is no mammographic evidence of malignancy. A 1 year screening mammogram is recommended. The patient has been or will be contacted. We recommend annual screening mammography for women at average risk of breast cancer beginning at age 40, based on guidelines of the [employer] (ACR Practice Parameter for the Performance of Screening and Diagnostic Mammography) and [employer]. For women with and elevated risk of breast cancer, please refer to the ACR Practice Parameter for specific screening recommendations. The patient will be entered into a reminder system with a target due date of 1 year for her next screening exam. Narrative 05/23/2024 10:59 AM LABEL SEWER Screening Mammogram Bilateral W Fernando: 05/23/24 The [...] Final Result * COLONOSCOPY (07/27/2023 11:42 AM LABEL SEWER) Anatomical Region Laterality Modality Other Narrative Procedure Note Marciano Head MD - 07/27/2023 11:42 AM CST [facility] Patient Name: Kiki Lawson Procedure Date: 07/27/2023 11:42 AM Date of : 1970 Admit Type: Outpatient Age: 53 Gender: Female Attending MD: Marciano Head M.D. Room: [facility] ENDOSCOPY ROOM 06 Note Status: Finalized Procedure: [...] The scope was passed under direct vision.The [id number]-[id number] colonoscope was introduced through theanus and advanced [...] On: 07/27/2023 11:42 AM Recognized by the [employer] for promoting quality [...] core IgM NONREACT NONREACTIVE 5 12:22 PM [facility] HISTORICAL RESULTS Comment: Siemens CentaurXP using [...] MICROBIOLOGY - GENER AL ORDERABLES Final Result [facility] HISTORICAL RESULTS from Last 3 Months or Most Recently Relevant to Health Maintenance Insurance [facility] [facility] Care Teams Nonprofit Manager Relationship Specialty Start Date End Date Soren Small MD PCP - General Family Medicine 12/05/18
--- OUTSIDE RECORDS SUMMARY | 2025-05-29 08:27 | XMS_ITS | Encounter Summary ---
Author Organization [facility] Facility Care Team Providers Care Sas Administrator Name Role Phone Soren Small MD Primary Care Provider [phone] Encounter Details Date Type Department Care Team (Latest Contact Info) Description 08/20/2016 Orders Only [facility] CLINCONV ProviderBilly MD [address] [place] [id number] Social History Tobacco Use Types Packs/Day Years Used Date Smoking Tobacco: Never Assessed Comments Unknown Sex and Gender Information Value Date Recorded Sex Assigned at Not on file Legal Sex Female 6:58 AM HOGSHEAD PACKER Gender Identity Not on file Sexual Orientation Straight 08/09/2022 10 :34 AM HOGSHEAD PACKER documented as of this encounter Plan of Treatment Not on file documented as of this encounter Procedures Procedure Name Priority Date/Time Associated Diagnosis Comments PROCEDURE - RESULT 08/14/2016 12 :00 AM HOGSHEAD PACKER PROCEDURE - RESULT 07/21/2016 12 :00 AM HOGSHEAD PACKER documented in this encounter Results * PROCEDURE - RESULT (08/14/2016 12:00 AM HOGSHEAD PACKER) Narrative 08/14/2016 12:00 AM HOGSHEAD PACKER Ordered by an unspecified provider. Historical Provider Final Res ult * PROCEDURE - RESULT (07/21/2016 12:00 AM HOGSHEAD PACKER) Narrative 07/21/2016 12:00 AM HOGSHEAD PACKER Ordered by an unspecified provider. us Historical Provider Final Res ult documented in this encounter Visit Diagnoses Not on filedocumented in this encounter Additional Health Concerns Infection Onset Date Last Indicated Resolved Time COVID: Suspected 05/22/2021 05/22/2021 05/23/2021 2:41 AM HOGSHEAD PACKER documented as of this encounter Care Teams Sas Administrator Relationship Specialty Start Date End Date Soren Small MD PCP - General Family Medicine 12/05/18 documented as of this encounter
--- NOTE | 2025-05-29 08:28 | ED.EXTPRO ---
HPI - Extremity Problem General Chief complaint: Extremity Problem,Nontraumatic Stated complaint: L shoulder pain Time Seen by Provider: 05/29/25 07:43 History of Present Illness HPI Narrative: Patient is quite active and since last night has noticed some pain to her L shoulder; much worse when she tries to move her left shoulder. Has not had issues with this before. No chest pain, no shortness of breath, no numbness or tingling Related Data Home Medications ?Medication ?Instructions ?Recorded ?Confirmed ?Last Taken ?Type citalopram 10 mg tablet mg 04/09/25 Unknown History losartan 50 mg tablet mg 04/09/25 Unknown History Allergies Allergy/AdvReac Type Severity Reaction Status Date / Time Penicillins Allergy Mild Rash Verified 05/29/25 07:51 Sulfa (Sulfonamide Allergy Rash Verified 05/29/25 07:51 Antibiotics) codeine AdvReac Mild Vomiting Verified 05/29/25 07:51 Review of Systems Review of Systems: All systems reviewed & are unremarkable except as noted in HPI and below PMFSH Past Medical History Medical History Hypertension Surgical History Surgical History No pertinent past surgical history Family History Family History Mother Family history non-contributory Social History Social History Living arrangements: with family Additional occupation/education comments: RN director Gender identity (if verbalized by the patient): Female Spiritual care concerns: No Exam Narrative: EXAMINATION OF ORGAN SYSTEMS/BODY AREAS: Constitutional: Vital signs per nursing GENERAL: Appears slightly uncomfortable, holding left arm HEAD: Normal with no signs of head trauma. EYES: EOMI, conjunctiva normal ENT: Hearing grossly intact LUNGS: Nonlabored breathing. HEART: Regular rate and rhythm, equal bilateral radial pulses ABD: Soft, nontender to palpation EXT: Significant real sedation and pain with for flexion left shoulder, positive Roach sign SKIN: No rashes or lesions. NEURO: Alert. No gross focal sensory or strength deficits. PSYCH: Normal affect Course Vital Signs Vital signs: Vital Signs Temperature 97.9 F 05/29/25 07:45 Pulse Rate 83 05/29/25 07:45 Respiratory Rate 15 05/29/25 07:45 Blood Pressure 181/107 H 05/29/25 07:45 Pulse Oximetry 97 05/29/25 07:45 Oxygen Delivery Room Air 05/29/25 07:45 Temperature 97.9 F 05/29/25 07:45 Pulse Rate 83 05/29/25 07:45 Respiratory Rate 16 05/29/25 08:30 Blood Pressure 156/89 H 05/29/25 08:30 Pulse Oximetry 97 05/29/25 08:30 Oxygen Delivery Room Air 05/29/25 07:45 MDM MDM Narrative Medical decision making narrative: Patient presenting with significant left shoulder pain since last night, on exam she is slightly uncomfortable, the pain is much worse with movement, positive Roach sign here. Normal neuro vascular exam. Given this and the pain with movement on exam I have lower concern for ACS or dissection. She does feel better after the Toradol shot, x-ray obtained without acute abnormality. Repeat blood pressure now improved, 156/89 she does have a history of high blood pressure. EKG - 12-Lead: Performed at 0756. Interpreted by me. Sinus rhythm. Rate 72. Normal axis. RI-interval normal. QRS duration normal. QTc normal. No ST segment elevation or depression. T-wave normal. Impression: No EKG evidence of acute ischemia or dysrhythmia. Did discuss with patient her findings, did offer labs and CT imaging if we wanted to rule out ACS or dissection, however given her exam and history I do have a lower suspicion of this, with shared decision-making, patient opts for discharge at this time but I did discuss strict return precautions and that she changes her mind she can come back. Differential Diagnosis Differential Diagnosis: Rotator cuff injury, sprain, ACS, dissection Imaging Data Radiologist's impression: ITS Impressions Shoulder X-Ray 05/29/25 08:10 Impression: No acute fracture or malalignment. Discharge Plan Discharge Clinical Impression: Left shoulder pain Patient Disposition: Home Condition: Stable Instructions: Shoulder Pain (ED) Additional Instructions: Please follow-up with orthopedist. If you start developing chest pain or shortness of breath, if you are having pain or numbness/tingling going up to your neck or down your arm, come back to the ER immediately. Patient Language: Indonesian Prescriptions: New prednisone 20 mg tablet 40 mg PO DAILY 4 Days Qty: 8 0RF methocarbamol 750 mg tablet 750 mg PO TID PRN (Reason: muscle spasm) Qty: 30 0RF lidocaine 5 % adhesive patch,medicated 1 patch topical DAILY Qty: 15 0RF Rx Instructions: leave on most painful area for up to 12 hrs ibuprofen 600 mg tablet 600 mg PO TID PRN (Reason: fever or pain) Qty: 30 0RF No Action losartan 50 mg tablet citalopram 10 mg tablet doxycycline hyclate 100 mg capsule 100 mg PO BID Qty: 20 0RF ofloxacin 0.3 % drops See Rx Instructions .ROUTE .COMPLEX Qty: 10 0RF Rx Instructions: put 1-2 drps into right eye every 2-4 h x 2 days, then 1-2 drps 4 times/day days 3-7 Follow-up/Referrals: Juanito Bangura MD [Physician, Orthopedics] - 3 Days Staci,Soren Mcclendon MD [Primary Care Provider, Unknown]
[2025-05-29 08:30] VITALS: BP 156/89; RESP 16; O2SAT 97
[2025-05-29] MEDS: LIDOCAINE 5% PATCH 1 PATCH TRANSDERM (08:33)
== END 2025-05-29 08:40 | disposition home or self-care (01) ==
PROVIDERS: Emergency Provider Emergency Medicine; PCP Family Medicine
DX: M25.512 Pain in left shoulder (principal); I10 Essential (primary) hypertension
CPT/HCPCS: 73030; 93005; 96372; 99283; A9270; J1885; J7512

== ENCOUNTER 2025-06-01 08:19 | Outpatient (CLI) | payer OTHER, SELFPAY ==
--- OUTSIDE RECORDS SUMMARY | 2025-06-01 08:30 | XMS_ITS | Encounter Summary ---
Author Organization [facility] Facility Care Team Providers Care Leasing Associate Name Role Phone Soren Small MD Primary Care Provider Encounter Details Date Type Department Care Team (Latest Contact Info) Description 08/20/2016 Orders Only [facility] CLINCONV ProviderBilly MD [address] [place] [id number] Social History Tobacco Use Types Packs/Day Years Used Date Smoking Tobacco: Never Assessed Comments Unknown Sex and Gender Information Value Date Recorded Sex Assigned at Not on file Legal Sex Female 6:58 AM MEMORY CARE DIRECTOR Gender Identity Not on file Sexual Orientation Straight 08/09/2022 10 :34 AM MEMORY CARE DIRECTOR documented as of this encounter Plan of Treatment Not on file documented as of this encounter Procedures Procedure Name Priority Date/Time Associated Diagnosis Comments PROCEDURE - RESULT 08/14/2016 12 :00 AM MEMORY CARE DIRECTOR PROCEDURE - RESULT 07/21/2016 12 :00 AM MEMORY CARE DIRECTOR documented in this encounter Results * PROCEDURE - RESULT (08/14/2016 12:00 AM MEMORY CARE DIRECTOR) Narrative 08/14/2016 12:00 AM MEMORY CARE DIRECTOR Ordered by an unspecified provider. Historical Provider Final Res ult * PROCEDURE - RESULT (07/21/2016 12:00 AM MEMORY CARE DIRECTOR) Narrative 07/21/2016 12:00 AM MEMORY CARE DIRECTOR Ordered by an unspecified provider. us Historical Provider Final Res ult documented in this encounter Visit Diagnoses Not on filedocumented in this encounter Additional Health Concerns Infection Onset Date Last Indicated Resolved Time COVID: Suspected 05/22/2021 05/22/2021 05/23/2021 2:41 AM MEMORY CARE DIRECTOR documented as of this encounter Care Teams Leasing Associate Relationship Specialty Start Date End Date Soren Small MD PCP - General Family Medicine 12/05/18 documented as of this encounter
--- OUTSIDE RECORDS SUMMARY | 2025-06-01 08:30 | XMS_ITS | Clinical Summary ---
Author Organization [facility] Address [address] [place] [address] Care Team Providers Care Engraver Name Role Phone Soren Small MD Primary Care Provider [phone] Allergies Active Allergy Reactions Criticality Noted Date [...] water pressure while sleeping. Her DME is [facility] home care. Assessment & Plan (02/09/2024 3:27 PM CDT): Due to continued symptoms, the patient will continue with auto titrating CPAP set at 5-15 cm water pressure. Denied need for supplies. DME a [facility] Assessment & Plan (12/14/2022 2:09 PM CDT): Patient continue to wear her CPAP at an auto titrating range of 5-15 cm water pressure while sleeping. Her DME is [facility]. I have sent an order over for new supplies. Assessment & Plan (09/23/2021 11:11 AM CDT): Patient continue to wear her CPAP in auto titrating range of 5-15 cm water pressure while sleeping. Her DME is [facility]. The patient has received her replacement unit from [employer]. Assessment & Plan (08/13/2020 2:01 PM PROPERTY INSURANCE INSPECTOR): The patient will continue with CPAP therapy at 5 cm water pressure to treat obstructive sleep apnea. The patient did receive an order for new supplies. The DME company is [facility]. The patient is benefitting from CPAP [...] Department Care Team Description 05/28/2025 10:15 AM PROPERTY INSURANCE INSPECTOR Office Visit [facility] at [address] [place] [address] Xenia Griffith PA Primary hypertension (Primary Dx); Generalized anxiety disorder; JESSICA (obstructive sleep apnea); Vitamin D deficiency; Class 3 severe obesity due to excess calories with serious comorbidity and body mass index (BMI) of 45.0 to 49.9 in adult; Screening for diabetes mellitus; Screening for thyroid disorder; Screening-pulmonary TB 04/20/2025 Orders Only [address] [address] Pascale Rose NP Acute cough 04/17/2025 Orders Only [address] [address] Pascale Rose NP 04/16/2025 Orders Only [facility] at [address] [address] Pascale Rose NP Acute cough 04/13/2025 9:45 AM CDT Office Visit [address] [id number] Pascale Rose NP JESSICA (obstructive sleep apnea) (Primary Dx); Acute cough 04/09/2025 Nurse Triage [facility] at [address] [place] [address] Tish Boss RN from Last 3 Months [...] on file Legal Sex Female 6:58 AM PROPERTY INSURANCE INSPECTOR Gender Identity Not on file Sexual Orientation Straight 08/09/2022 10 :34 AM PROPERTY INSURANCE INSPECTOR Obstetrics History Para Term AB IAB SAB Ectopic Multiple Livin g Live Births 3 3 3 Date Outcome GA Total Labor Labor/2nd/3rd Weight Sex Type Anes PTL Vivienne A1 A5 Name Clin Term Term Term Last Filed Vital Signs Vital Sign Reading Time Taken Comments Blood Pressure 110/82 05/28/2025 10:25 AM PROPERTY INSURANCE INSPECTOR Pulse 66 05/28/2025 10:25 AM PROPERTY INSURANCE INSPECTOR Temperature 36.1 C (97 F) 05/28/2025 10:25 AM PROPERTY INSURANCE INSPECTOR Respiratory Rate 18 04/13/2025 9:45 AM CDT Oxygen Saturation 94% 05/28/2025 10:25 AM PROPERTY INSURANCE INSPECTOR Inhaled Oxygen Concentration - - Weight 119 kg (262 lb 6.4 oz) 05/28/2025 10:25 A M PROPERTY INSURANCE INSPECTOR Height 154.9 cm (5' 1) 05/28/2025 10:25 AM PROPERTY INSURANCE INSPECTOR Body Mass Index 49.58 05/28/2025 10:25 AM PROPERTY INSURANCE INSPECTOR Plan of Treatment Health Maintenance Due Date [...] this topic Medical Devices Implanted Type Area Frozen Foods Manager Device Identifier Shelf Expiration Date Model / Serial / Lot [employer] Disc Intervertebral Cervical Superior Simplify Size 2 [id number] - [id number] Implanted:Qty: 1 on 06/23/2024 by Henrry Correa MD PhD at [facility] N/A: Spine Cervical [employer] [id number] 09/29/2026 [id number] / / [id number] [employer] Disc Intervertebral Cervical Superior Simplify Size 2 [id number] - [id number] Implanted:Qty: 1 on 06/23/2024 by Henrry Correa MD PhD at [facility] N/A: Spine Cervical [employer] [id number] 03/01/2028 [id number] / / [id number] Procedures Procedure Name Priority Date/Time Associated Diagnosis Comments XR CHEST PA LATERAL 2 VIEWS Schedule Routine, Read Routine (OP Routine) 04/16/2025 5:38 PM PROPERTY INSURANCE INSPECTOR Acute cough SCREENING MAMMOGRAM BILATERAL W FERNANDO Schedule Routine, Read Routine (OP Routine) 05/23/2024 8:26 AM PROPERTY INSURANCE INSPECTOR Encounter for screening mammogram for malignant neoplasm of breast COLONOSCOPY 07/27/2023 11:42 AM PROPERTY INSURANCE INSPECTOR HEPATITIS PANEL, ACUTE Routine 01/01/2015 10:50 AM CDT from Last 3 Months or Most Recently Relevant to Health Maintenance Results * XR Chest Pa Lateral 2 Views (04/16/2025 5:38 PM PROPERTY INSURANCE INSPECTOR) Anatomical Region Laterality Modality Body, Chest N/A Radiographic Elo ging Pascale Rose PURCHASING ASSOCIATE IMG XR PROCEDURES Final Result * Screening Mammogram Bilateral W Fernando (05/23/2024 8:26 AM PROPERTY INSURANCE INSPECTOR) Anatomical Region Laterality Modality Breast Bilateral Mammography Impressions 05/23/2024 10:59 AM PROPERTY INSURANCE INSPECTOR BI-RADS ATLAS category (overall): 1 - Negative There is no mammographic evidence of malignancy. A 1 year screening mammogram is recommended. The patient has been or will be contacted. We recommend annual screening mammography for women at average risk of breast cancer beginning at age 40, based on guidelines of the [employer] [employer] (ACR Practice Parameter for the Performance of Screening and Diagnostic Mammography) and [place] [employer]. For women with and elevated risk of breast cancer, please refer to the ACR Practice Parameter for specific screening recommendations. The patient will be entered into a reminder system with a target due date of 1 year for her next screening exam. Narrative 05/23/2024 10:59 AM PROPERTY INSURANCE INSPECTOR Screening Mammogram Bilateral W Fernando: 05/23/24 The [...] Final Result * COLONOSCOPY (07/27/2023 11:42 AM PROPERTY INSURANCE INSPECTOR) Anatomical Region Laterality Modality Other Narrative Procedure Note Marciano Head MD - 07/27/2023 11:42 AM CST [facility] GI ENDOSCOPY Patient Name: Kiki Lawson Procedure Date: 07/27/2023 11:42 AM Date of : 1970 Admit Type: Outpatient Age: 53 Gender: Female Attending MD: Marciano Head M.D. Room: [facility] ENDOSCOPY ROOM 06 Note Status: Finalized Procedure: [...] The scope was passed under direct vision.The PCF-CS053T colonoscope was introduced through theanus and advanced [...] On: 07/27/2023 11:42 AM Recognized by the [place] [employer] for promoting quality [...] core IgM NONREACT NONREACTIVE 5 12:22 PM [facility] HISTORICAL RESULTS Comment: Siemens CentaurXP using FAREED (chemiluminescent immunoassay) technology. NONREACTIVE: IgM antibodies to Hepatitis B Core antigen not detected. EQUIVOCAL: IgM antibodies to Hepatitis B Core antigen may or may not be present. Obtain a new specimen and retest. REACTIVE: IgM antibodies to Hepatitis B Core antigen detected. Hep A IgM NONREACT NONREACTIVE 01/01/2015 12:24 PM [facility] HISTORICAL RESULTS Comment: Siemens CentaurXP using FAREED (chemiluminescent immunoassay) technology. NONREACTIVE: IgM antibodies to Hepatitis A not detected. This does not exclude possibility of exposure to Hepatitis A or early acute infection. EQUIVOCAL:IgM antibodies to Hepatitis A may or may not be present. Suggest recollection and retest. REACTIVE: Antibodies to Hepatitis A detected. Hep C Ab NONREACT NONREACTIVE 01/01/2015 12:22 PM [facility] HISTORICAL RESULTS Comment: Siemens CentaurXP using FAREED [...] MICROBIOLOGY - GENER AL ORDERABLES Final Result [facility] HISTORICAL RESULTS from Last 3 Months or Most Recently Relevant to Health Maintenance Insurance [employer] [facility] HMO/PPO Address: [address] [address] [place] [address] Care Teams Engraver Relationship Specialty Start Date End Date Soren Small MD PCP - General Family Medicine 12/05/18
--- OUTSIDE RECORDS SUMMARY | 2025-06-01 08:30 | XMS_ITS | Encounter Summary ---
Author Organization [facility] Care Team Providers Care [employer] Name Role Phone Soren Small MD Primary Care Provider [phone] Encounter Details Date Type Department Care Team (Latest Contact Info) Description 10/22/2016 Orders Only [facility] ProviderBilly MD [address] [place] [id number] Social History Tobacco Use Types Packs/Day Years Used Date Smoking Tobacco: Never Assessed Comments Unknown Sex and Gender Information Value Date Recorded Sex Assigned at Not on file Legal Sex Female 6:58 AM INTERACTIVE DEVELOPER Gender Identity Not on file Sexual Orientation Straight 08/09/2022 10 :34 AM INTERACTIVE DEVELOPER documented as of this encounter Plan of Treatment Not on file documented as of this encounter Procedures Procedure Name Priority Date/Time Associated Diagnosis Comments PROCEDURE - RESULT 08/14/2016 12 :00 AM INTERACTIVE DEVELOPER documented in this encounter Results * PROCEDURE - RESULT (08/14/2016 12:00 AM INTERACTIVE DEVELOPER) Narrative 08/14/2016 12:00 AM INTERACTIVE DEVELOPER Ordered by an unspecified provider. Historical Provider Final Res ult documented in this encounter Visit Diagnoses Not on filedocumented in this encounter Additional Health Concerns Infection Onset Date Last Indicated Resolved Time COVID: Suspected 05/22/2021 05/22/2021 05/23/2021 2:41 AM INTERACTIVE DEVELOPER documented as of this encounter Care Teams [employer] Relationship Specialty Start Date End Date Soren Small MD PCP - General Family Medicine 12/05/18 documented as of this encounter
[2025-06-01 08:44] LABS: Hematocrit 40.8 % (37.0-47.0); Hemoglobin 13.7 g/dL (12.0-15.0); Immature Granulocyte Percent A 0.7 % (0-0.5); Lymphocytes Absolute Auto 2.31 K/mm3 (0.9-3.2); Mean Corpuscular HGB Conc 33.6 g/dl (32-36); Mean Corpuscular Hemoglobin 31.2 pg (26-34); Mean Corpuscular Volume 92.9 fl (80-100); Nucleated Red Blood Cells Absolute Auto 0.000 K/mm3 (0.0-0.012); Nucleated Red Blood Cells Perc 0.0 % (0.0-0.2); Platelet Count Result 244 k/mm3 (150-375); Red Blood Count 4.39 M/mm3 (4.2-5.4); White Blood Count 6.2 K/mm3 (4.5-10.0)
[2025-06-01 08:54] LABS: Hemoglobin A1C 5.1 % (<5.7)
[2025-06-01 09:04] LABS: Alanine Aminotransferase 22 U/L (6-35); Albumin Level 4.5 g/dL (3.5-5.1); Alkaline Phosphatase 76 U/L (38-126); Anion Gap 7 mmol/L (4-12); Aspartate Amino Transferase 26 U/L (14-36); Bilirubin,Total 0.6 mg/dL (0.2-1.3); Blood Urea Nitrogen 18 mg/dL (7-17); Calcium 9.3 mg/dL (8.4-10.2); Carbon Dioxide 29 mmol/L (22-30); Chloride 103 mmol/L (98-107); Cholesterol 207 mg/dL (0-200); Estimated Glomerular Filt Rate > 60; Glucose 94 mg/dL (65-110); HDL Direct 62 mg/dL; Potassium 3.7 mmol/L (3.4-5.0); Sodium 139 mmol/L (137-145); Total Protein 7.8 g/dL (6.3-8.2); Triglycerides 198 mg/dL (<150)
[2025-06-02 07:08] LABS: TSH 3.570 uIU/mL (0.450-4.500)
== END 2025-06-01 08:20 | disposition home or self-care (01) ==
PROVIDERS: PCP Family Medicine
DX: Z11.1 Encounter for screening for respiratory tuberculosis (principal); I10 Essential (primary) hypertension; E55.9 Vitamin D deficiency, unspecified; Z13.29 Encounter for screening for other suspected endocrine disorder; Z13.1 Encounter for screening for diabetes mellitus
CPT/HCPCS: 36415; 80053; 80061; 82306; 83036; 84439; 84443; 84481; 85025; 86376; 86480